=== PATIENT | male | born 1955 | race Caucasian/White ===

== ENCOUNTER → 2016-12-22 | Outpatient (CLI) | payer OTHER ==
[~2016-12-22] VITALS: Ht 177.8 cm; Wt 137.4 kg
[~2016-12-22] MED LIST: ADULT LOW DOSE81 MG PO; ALBUTEROL INHAL17 GM IH; ALEVE220 M1 PO; ALPRAZOLAM1 M1; ATIVAN0.5 MG PO; AVAPRO300 MG; AVAPRO75 MG PO; BUTRANS1 EAC1 TD; CVS FISH OIL 11 EAC3 PO; DOXYCYCLINE HY100 M4 PO; FLEXERIL PO; FOLIC ACID0.8 MG PO; GABAPENTIN800 M1 PO; HYDREA 500 MG500 M1 PO; HYDROCODON-ACE1 EAC5; HYDROCODON-ACE1 EAC5 PO; HYDROCODONE-AP1 EACH PO; KLOR-CON 1010 MEQ PO; LASIX 40 MG TAB40 MG; LASIX 80 MG TAB80 MG PO; LUNESTA2 MG PO; METFORMIN HCL500 MG PO; METHOCARBAMOL750 MG; NEURONTIN600 MG; NEURONTIN600 MG PO; NEURONTIN800 MG PO; NITROGLYCERIN0.4 MG; Neurontin PO; PERCOCET 5-3251 EACH PO; PREDNISONE50 MG PO; PROTONIX40 M2 PO; ROBAXIN 750 MG750 M1 PO; ROBAXIN 750 MG750 MG PO; ROBAXIN500 MG PO; SYMBICORT160 MCG/4.; TYLENOL PM EX-1 EACH PO; VENTOLIN17 GM; XANAX 0.5 MG0.5 MG PO
--- NOTE | ~2016-12-22 | HPC ---
[facility] [place] [address] PAIN MANAGEMENT CONSULTATION Name: RACHID DIAMOND Room #: REG SAJAN Torres.#: [id number] Admission: 12/22/16 Attend Phys: Navdeep Maguire MD Discharge: Date of : 59 Report #: [id number] THIS REPORT FOR: //name// CC: Renny Maguire DATE OF SERVICE: 12/22/2016 DATE OF SERVICE: 12/22/2016 Followup visit for chronic back. The patient is here today in the clinic and is quite dyspneic walking into the clinic. Nurse checked his room air oxygen saturation, which was in the mid 80s. Came up quickly with oxygen and rest. He says he frequently has shortness of breath. He has home O2 which he use, but has not been using it recently. He has COPD yet continues to smoke. We have talked him about this at length today and I have asked him to follow up soon with his primary care physician. He was given recommendations regarding smoking cessation and some strategies were discussed. Review of his medications today shows that he has been taking a nonsteroidal anti-inflammatory drug, despite our recommendations against this. He had Wilms' tumor as a child and has a solitary kidney left. There is certainly some risk with chronic daily use of nonsteroidal anti-inflammatory drugs and high dose of Lasix. Much rather ____ small doses of hydrocodone, then put his kidneys at risk. Again this is something that he should follow up with his primary care physician, Dr. Weston about. The patient also follows with Dr. Navdeep Velez for polycythemia vera. He has not seen Dr. Velez in some time and is looking for a new physician, as Dr. Velez has been reporting that he is retiring soon. MEDICATIONS: Aleve 1-2 tablets daily, Lasix 80 mg daily, Tylenol extra strength 1-4 tablets daily, hydrocodone 10/325 one tablet q. 8 hours p.r.n. severe pain, Neurontin ____ mg 4 times daily, Avapro, metformin, aspirin, Folic acid, albuterol, nitroglycerin, Hydrea. ALLERGIES: PENICILLIN, BENADRYL, METHOCARBAMOL. PHYSICAL EXAMINATION: GENERAL: Morbidly obese, short of breath, 61-year-old. VITAL SIGNS: His weight is 303 with a BMI of 43.5, blood pressure is 135/70, heart rate is 100, his room air oxygen saturation on admission was 84, rising to 91 on 2 L and short rest. CHEST: Reveals inspiratory [place] [address] PAIN MANAGEMENT CONSULTATION Name: DARAMELY JACINTOH Room #: REG [facility].#: [id number] Admission: 12/22/16 Attend Phys: Navdeep Maguire MD Discharge: Date of : 59 Report #: [id number] CARDIAC: Rhythm is regular, without audible murmur. ABDOMEN: Soft. BACK: Tender with pain across the lumbosacral segment, radiating into both legs. IMPRESSION: 1. Chronic intractable back pain related to previous back surgeries, lumbar spondylosis, curvature with scoliosis. 2. Chronic obstructive pulmonary disease with hypoxemia. 3. Polycythemia vera and myeloproliferative disorder. 4. Solitary kidney. Again counseled to avoid nonsteroidal anti-inflammatory drugs. History of Wilms' tumor. 5. Chronic opioid use under terms of an opioid agreement. We reviewed the details in the CDC guidelines with one prescribing physician, one pharmacy and opioid agreement has been signed importance of safeguarding all medications and management of high risk medication side effects. 6. Hypertension. PLAN: 1. Follow up with Dr. Weston regarding his other medical condition. 2. Stop smoking! counseled and provided strategies. 3. Avoid nonsteroidal anti-inflammatory drugs. 4. Hydrocodone as ordered. 5. Follow up in the pain clinic in 3 months. Medications were provided for him under terms of our opioid agreement. By: [id number] Navdeep Maguire MD /nt
[2016-12-22 10:04] VITALS: BP 135/70
== END | disposition home or self-care (01) ==
LOC: PAIN 07:03
DX: M47.816 Spondylosis without myelopathy or radiculopathy, lumbar region (principal); J44.9 Chronic obstructive pulmonary disease, unspecified; F17.200 Nicotine dependence, unspecified, uncomplicated; E66.01 Morbid (severe) obesity due to excess calories; Z68.41 Body mass index [BMI] 40.0-44.9, adult; D45 Polycythemia vera; C94.6 Myelodysplastic disease, not elsewhere classified; I10 Essential (primary) hypertension

== ENCOUNTER → 2017-03-16 | Outpatient (CLI) | payer OTHER ==
[~2017-03-16] VITALS: Ht 177.8 cm; Wt 131.5 kg
[~2017-03-16] MED LIST changes: +NICOTINE TRANSD21 M1
--- NOTE | ~2017-03-16 | HPC ---
[facility] [place] [address] PAIN MANAGEMENT CONSULTATION Name: RACHID DIAMOND Room #: REG SAJAN Torres.#: [id number] Admission: 03/16/17 Attend Phys: Navdeep Maguire MD Discharge: Date of : 59 Report #: [id number] THIS REPORT FOR: //name// CC: Renny Maguire DATE OF SERVICE: 03/16/2017 Followup visit for management of chronic medication for intractable pain. The patient returns to pain clinic today for renewal of pain medication. I provided him with 3 hydrocodone 10/325 tablets per day and gabapentin under the terms of an opioid agreement. We discussed the CDC guidelines. We discussed his dose which equates to 30 morphine milligram equivalence a day well under the dose that we are trying to keep patients established per the guidelines. Nonetheless, he still needs to be careful with his medications, safeguarding and taking as prescribed. He can only have one prescribers and one pharmacy. He lives in [place] and fills his prescriptions there. Using drug monitoring programs is impossible in the state of [place] despite recent efforts to bring [place] in line with the other 49 states in the [place]. I did not perform a K-TRACS today. He has reduced his tobacco use by 40%. He is down to 1-1/2 packs of cigarettes per day. He has been more active painting his house. Precautions were given regarding use of ladders at the age of 61 on medication and obesity. He reports that his pain is very well managed on his current regimen and tolerable. He has developed good regimen of work around the house that allows him to pace himself. Seems happier today. He has got a new dog, it is 8 weeks old. The companionship, I think, will do the patient a lot of good. PHYSICAL EXAMINATION: GENERAL: He is pleasant, alert, easy going. No signs of overmedication. MUSCULOSKELETAL: Examination of his back reveals localized tenderness. He has tenderness in his hips and knees, walks with an arthritic gait. IMPRESSION: 1. Chronic intractable low back pain and arthritis. 2. Solitary kidney, history of Wilms' tumor. 3. Obesity. 4. Chronic obstructive pulmonary disease. 5. Chronic high use tobacco with tapering with intent to quit. He was counseled. [address] [address] PAIN MANAGEMENT CONSULTATION Name: RACHID DIAMOND Room #: REG SAJAN Melissa.#: [id number] Admission: 03/16/17 Attend Phys: Navdeep Maguire MD Discharge: Date of : 59 Report #: [id number] 6. Management of high-risk medication. PLAN: I have renewed his medication under the terms of our agreement and scheduled a followup appointment in 3 months. Urine drug screen has been performed within the last 6 months. By: [id number] Navdeep Maguire MD /nt
[2017-03-16 08:19] VITALS: BP 117/63
== END ==
LOC: PAIN 06:49
DX: M54.5 Low back pain (principal); M19.90 Unspecified osteoarthritis, unspecified site; Q60.0 Renal agenesis, unilateral; C64.9 Malignant neoplasm of unspecified kidney, except renal pelvis; E66.9 Obesity, unspecified; J44.9 Chronic obstructive pulmonary disease, unspecified; F17.200 Nicotine dependence, unspecified, uncomplicated; I10 Essential (primary) hypertension

== ENCOUNTER → 2017-06-15 | Outpatient (CLI) | payer OTHER ==
[~2017-06-15] VITALS: Ht 177.8 cm; Wt 129.1 kg
--- NOTE | ~2017-06-15 | HPC ---
[facility] [address] [place] [address] PAIN MANAGEMENT CONSULTATION Name: RACHID DIAMODN Room #: REG SAJAN LalitTootie.#: [id number] Admission: 06/15/17 Attend Phys: Navdeep Maguire MD Discharge: Date of : 59 Report #: [id number] THIS REPORT FOR: //name// CC: Renny Maguire DATE OF SERVICE: 06/15/2017 Followup visit for management of chronic low back pain and osteoarthritis. The patient was in the pain clinic today and I spent 25 minutes in counseling today regarding his chronic pain and general health. Much of that time was spent discussing his desire to quit smoking. He has reduced his tobacco down to 1-1/2 packs per day, but he understands that his tobacco use is important not only for his pain, but for his general health. He is now becoming more oxygen dependent based upon his pulmonary condition. Several strategies were provided for him to quit smoking. The patient has smoked since he was a child. He has many habitual cigarettes. He has failed attempts to quit smoking on several occasions. His pain today is mostly in his low back with chronic deep aching, worse with walking and standing. His pain is 6-7/10. With shortness of breath, he is becoming less active. This seems to also worsen his back pain as he becomes more debilitated. MEDICATIONS: Hydrocodone 10/325 mg 4 times daily, gabapentin 800 mg t.i.d., Lasix 80 mg every other day, lorazepam 0.5 mg b.i.d., nitroglycerine, hydroxyurea, albuterol, folic acid, aspirin, metformin, irbesartan. PHYSICAL EXAMINATION: Morbidly obese, pleasant, alert, oriented. No signs of depression, anxiety, or overmedication. Slightly dyspneic at rest. His oxygen saturation is 92%. His blood pressure is 120/82, heart rate 90. His BMI is 40.8. Able to move from sitting to standing position, ambulates with antalgic features. He has pain across his low back, pain into his hips with straight leg raising. Pain with internal and external rotation of each hip and tenderness in the knees. IMPRESSION: 1. Chronic low back pain with spondylosis and osteoarthritis. 2. Morbid obesity. 3. Chronic obstructive pulmonary disease. 4. Chronic use of tobacco. 5. Solitaire kidney with history of Wilms tumor. PLAN: [place] [address] PAIN MANAGEMENT CONSULTATION Name: RACHID DIAMOND Room #: REG SAJAN TorresMary#: [id number] Admission: 06/15/17 Attend Phys: Navdeep Maguire MD Discharge: Date of : 59 Report #: [id number] 1. Continue supportive efforts to quit smoking. 2. Renewal of pain medication under terms of written opioid agreement, 10 mg of hydrocodone 3 times daily and gabapentin 800 mg t.i.d. Medications were written for 4 months. 3. Review of the CDC guidelines, review of opioid agreement, and issues related to using opioids for chronic intractable pain. He will continue to safeguard his medications carefully. By: [id number] Navdeep Maguire MD /nt
[2017-06-15 09:25] VITALS: BP 120/82
== END | disposition home or self-care (01) ==
LOC: PAIN 07:08
DX: M47.819 Spondylosis without myelopathy or radiculopathy, site unspecified (principal); E66.01 Morbid (severe) obesity due to excess calories; J44.9 Chronic obstructive pulmonary disease, unspecified; Q60.0 Renal agenesis, unilateral; Z79.899 Other long term (current) drug therapy; Z68.41 Body mass index [BMI] 40.0-44.9, adult; F17.200 Nicotine dependence, unspecified, uncomplicated

== ENCOUNTER → 2017-09-11 | Outpatient (CLI) | payer OTHER ==
[~2017-09-11] VITALS: Ht 177.8 cm; Wt 129.4 kg
--- NOTE | ~2017-09-11 | HPC ---
[facility] [place] [address] PAIN MANAGEMENT CONSULTATION Name: RACHID DIAMOND Room #: REG SAJAN TorresMary#: [id number] Admission: 09/11/17 Attend Phys: Yariel Miranda MD Discharge: Date of : 59 Report #: [id number] THIS REPORT FOR: //name// CC: Renny Miranda DATE OF SERVICE: 09/11/2017 FOLLOWUP COMPLAINT: Here for medication refill. FOLLOWUP HISTORY: The patient is a 62-year-old gentleman who has been followed in the pain clinic by Dr. Navdeep Maguire. Suffers from chronic low back pain and osteoarthritis. He continues to smoke. States that he is decreasing his smoking level. He is at about 1-1/2 packs per day, may be a little more. He is wearing an [id number] nicotine patch. States that his pain continues to be problematic in his low back and feels that his medications are still necessary to help maintain his level of activity. He denies getting medication from any other source. States that he is aware that opioid medications can be addictive and tolerance may develop. States that he continues to try to decrease the amount of cigarettes that he is taking. Notes the pain continues to be problematic in his back with walking and standing. Does have some shortness of breath with activity. PHYSICAL EXAMINATION: Blood pressure 139/71, pulse 86, respiratory rate 22. Room air saturation 93%. Height 5 feet 10 inches, weight 285 pounds, BMI is 40. CURRENT MEDICATIONS: Hydrocodone 10/325 four tablets daily, gabapentin 800 mg t.i.d., Lasix 80 mg every other day, lorazepam 0.5 mg b.i.d., nitroglycerin p.r.n., hydroxyurea, albuterol, folic acid, aspirin, metformin, irbesartan. IMPRESSION: 1. Chronic low back pain with spondylosis and osteoarthritis. 2. Morbid obesity. 3. Chronic obstructive pulmonary disease. 4. Chronic use of tobacco. 5. Solitary kidney with history of Wilms tumor. RECOMMENDATIONS: We encourage the patient to continue to decrease use of tobacco. We also explained to the patient that use of a nicotine patch is not a good idea given that he continues to smoke. We would like to thank you for letting us participate in his care. We hope he continues to improve. <ELECTRONICALLY SIGNED> By: Yariel Miranda MD 09/17/17 [id number] [id number] Yariel Miranda MD /[facility]
[2017-09-11 08:05] VITALS: BP 139/71
== END ==
LOC: PAIN 06:55
DX: M54.16 Radiculopathy, lumbar region (principal); M19.91 Primary osteoarthritis, unspecified site; J44.9 Chronic obstructive pulmonary disease, unspecified; E66.01 Morbid (severe) obesity due to excess calories; F17.200 Nicotine dependence, unspecified, uncomplicated

== ENCOUNTER → 2017-12-10 | Outpatient (CLI) | payer OTHER ==
[~2017-12-10] VITALS: Ht 180.3 cm; Wt 130.2 kg
[~2017-12-10] MED LIST changes: +VENTOLIN HFA 1818 GM INH; -VENTOLIN17 GM
--- NOTE | ~2017-12-10 | HPC ---
[facility] [address] [place] [address] PAIN MANAGEMENT CONSULTATION Name: RACHID DIAMOND Room #: REG SAJAN Torres.#: [id number] Admission: 12/10/17 Attend Phys: Navdeep Maguire MD Discharge: Date of : 59 Report #: [id number] THIS REPORT FOR: //name// CC: Renny Maguire DATE OF SERVICE: 12/10/2017 Followup visit for chronic low back pain with spondylosis and osteoarthritis. The patient returns to Pain Clinic today in followup for medication management of chronic back pain. He has been in our practice now for over 6 years. He has managed his medications carefully and we have kept at a very low dose. He has been using hydrocodone 3 tablets per day under terms of our written agreement. With this, he is able to function at a high level. He is able to take care of all of his activities of daily living. He is able to do some chores around the house. He has noted no cognitive side effects and constipation has been well managed. He does not take very good care of himself and we discussed that today. He continues to smoke and he is morbidly obese. Although, he remains active, he does not regularly exercise. I talked about the importance of staying active. Dr. Weston follows him for COPD. He also manages all other medications, which were reviewed and reconciled from the electronic medical record. It should be noted that he is not a fall risk and has not fallen in the last several months. His hypertension has been controlled with medication. His blood pressure 138/80, heart rate 97, respirations 18. His O2 sat, however, is 91 on room air. He is short of breath with dyspnea with exertion. He has some expiratory wheezing. He is on an opioid agreement, which was signed initially several years ago and renewed that contract and had him resign it today just to reinforce the issues of safeguarding medication. He is on 30 morphine milligram equivalents per day, using 3 hydrocodone relatively on schedule. These are 10 mg tablets and they provide good relief for a good duration of response. His opioid risk tool is 13. He has high risk and we will monitor him carefully at 3-month intervals. Functional assessment tool shows 47/70 as his score today. His initial score when he came to our practice in 2010 with 70/70. So, he is doing better. IMPRESSION: 1. Chronic low back pain with spondylosis and osteoarthritis of the left hip. 2. Morbid obesity. [facility] [address] [place] [address] PAIN MANAGEMENT CONSULTATION Name: RACHID DIAMOND Room #: REG [facility]#: [id number] Admission: 12/10/17 Attend Phys: aNvdeep Maguire MD Discharge: Date of : 59 Report #: [id number] 3. Chronic obstructive pulmonary disease. 4. Tobacco abuse. 5. Solitary kidney with Wilms tumor. 6. Polycythemia vera. PLAN: 1. He was again counseled on smoking today. 2. I have renewed his medications under terms of our written agreement and discussed the CDC guidelines with him again. His dose is 30 morphine milligram equivalents a day, taking hydrocodone 10/325 three times a day on schedule. 3. He was counseled about the use of marijuana for the treatment of pain or for recreation in the State [place], [place]. These are considered drugs of abuse. He has used these in the past. 4. Follow up with Oncology for his condition of polycythemia vera. 5. Follow up in 3 months. <ELECTRONICALLY SIGNED> By: Navdeep Maguire MD 01/04/18 1408 1035 1202 Navdeep Maguire MD /nt
[2017-12-10 10:06] VITALS: BP 138/80
== END ==
LOC: PAIN 06:58
DX: M47.896 Other spondylosis, lumbar region (principal); M16.12 Unilateral primary osteoarthritis, left hip; E66.01 Morbid (severe) obesity due to excess calories; J44.9 Chronic obstructive pulmonary disease, unspecified; F17.200 Nicotine dependence, unspecified, uncomplicated; D45 Polycythemia vera; C64.9 Malignant neoplasm of unspecified kidney, except renal pelvis; Z68.41 Body mass index [BMI] 40.0-44.9, adult

== ENCOUNTER → 2018-03-11 | Outpatient (CLI) | payer OTHER ==
[~2018-03-11] VITALS: Ht 180.3 cm; Wt 133.3 kg
--- NOTE | ~2018-03-11 | HPC ---
[facility] [place] [address] PAIN MANAGEMENT CONSULTATION Name: RACHID DIAMOND Room #: REG SAJAN Melissa.#: [id number] Admission: 03/11/18 Attend Phys: Navdeep Maguire MD Discharge: Date of : 59 Report #: [id number] THIS REPORT FOR: //name// CC: [facility] Renny Maguire DATE OF SERVICE: 03/11/2018 Followup visit for chronic low back pain related to spondylosis and also history of osteoarthritis of the left hip. The patient returns to pain clinic today for followup. I see him at 3-month intervals. He established treatment in our clinic in 2010. He has chronic back pain related to degenerative spondylosis and complains of pain in his large joints, particularly his left hip, which is osteoarthritic. He has been treated with medications with substantial improvement. He reports subjective reductions in pain as well as improvement in his activities of daily living. He denies any significant side effects other than mild constipation, which is often counter acted by the other medications that he takes. He has polycythemia vera and is on hydroxyurea, which can loosen his stools. In the interval since his last visit, there have been no significant changes other than some concern about the interval between his phlebotomies. His hematocrit on one occasion ailyn to above 49 and he becomes symptomatic when this occurs with fatigue. All medications are reviewed and reconciled. He receives from our clinic hydrocodone 10/325 three tablets daily and gabapentin 800 mg t.i.d. He requested an increase in his gabapentin and I agreed to take him to 3200 mg per day. PQRS assessment shows history of osteoarthritis involving multiple joints, left and right upper and lower extremity, shoulders, hips and knees. He is obese with a BMI of 41. He has a history of hypertension, under treatment by primary physicians. He is not a fall risk and has not fallen in the last 3 months. He is receiving opioid medications and has an opioid agreement signed in the chart 12/10/2017. He has completed a functional assessment tool and is considered a high risk. We will monitor him carefully. His number was 13. He has shown no red flag behaviors. His functional assessment tool score is 47/70. SOCIAL HISTORY: He continues to smoke cigarettes, 1 to 1-1/2 packs per day and has done so for 40 years. He was counseled. PHYSICAL EXAMINATION: [address] [address] PAIN MANAGEMENT CONSULTATION Name: RACHID DIAMOND [id number] Admission: 03/11/18 Attend Phys: Navdeep Maguire MD Discharge: Date of : 59 Report #: [id number] GENERAL: He is a pleasant, outgoing gentleman. VITAL SIGNS: Blood pressure 131/71, heart rate is 91. His BMI is 41.0. CARDIAC: Rhythm is regular. CHEST: Reveals inspiratory and expiratory wheezing. He has pain across his low back with flexion and extension, both exacerbating pain. Straight leg raising is negative for radicular symptoms. He has bilateral pain in the hips with internal and external rotation and tenderness in the shoulders and knees consistent with osteoarthritis. IMPRESSION: 1. Chronic intractable back pain related to multiple pain generators including spondylosis of the lumbar spine and osteoarthritis involving multiple joints. 2. Morbid obesity. 3. Chronic obstructive pulmonary disease. 4. Tobacco abuse. 5. Polycythemia vera. 6. Solitary kidney with history of resection for Wilms tumor. 7. Management of high risk medications under terms of an opioid agreement. I have renewed his hydrocodone at 30 MME per day, three 10/325 tablets taken on a schedule and I have increased his gabapentin 800 mg 4 times daily. He should follow up with his primary care physician. I would prefer that he obtain electrolytes sometime within the next 2 months on the higher dose of gabapentin to monitor for hyponatremia or other electrolyte changes. By: [id number] Navdeep Maguire MD /nt
[2018-03-11 09:41] VITALS: BP 131/71
== END ==
LOC: PAIN 06:46
DX: M54.16 Radiculopathy, lumbar region (principal); J44.9 Chronic obstructive pulmonary disease, unspecified; G89.4 Chronic pain syndrome; M19.90 Unspecified osteoarthritis, unspecified site; M54.5 Low back pain; D45 Polycythemia vera; E66.01 Morbid (severe) obesity due to excess calories; F17.200 Nicotine dependence, unspecified, uncomplicated; Z79.899 Other long term (current) drug therapy

== ENCOUNTER → 2018-09-09 | Outpatient (CLI) | payer OTHER ==
[~2018-09-09] VITALS: Ht 182.9 cm; Wt 131.1 kg
--- NOTE | ~2018-09-09 | HPC ---
[facility] [address] [place] [address] PAIN MANAGEMENT CONSULTATION Name: RACHID DIAMOND Room #: REG Rajat Bowen#: [id number] Admission: 09/09/18 Attend Phys: Jael Gutierrez Discharge: Date of : 59 Report #: [id number] THIS REPORT FOR: //name// CC: Jael Weston DATE OF SERVICE: 09/09/2018 This is a followup visit for his osteoarthritis, lumbar spondylosis and chronic pain. HISTORY OF PRESENT ILLNESS: The patient returns today for a refill of his pain medication, which we provide for him under his written opioid agreement to help him manage his chronic pain and osteoarthritis. He tells me that his pain level today is 7/10. This is an average pain score for him, but it allows him to function and do his normal activities of daily living. He tells me that he is trying to stop smoking. He is down to 2 packs a day, which he was smoking 3-1/2 packs a day. He is slowly making progress. We also discussed that his primary care doctor has been decreasing his Ativan. The patient tells me he wants to get off all of his opioid and Ativan medications. The patient tells me that he has most of his pain when he is walking and standing, but better when he is sitting and lying down. He tells me that he does not have any constipation or daytime sleepiness. He does take a scheduled nap every afternoon. The patient also tells me he is interested in the medical marijuana when that becomes available in [place] and he understands that he will not be on any narcotics if he gets a medical marijuana card. The patient today would like a refill of his hydrocodone and his gabapentin. CURRENT ALLERGIES: BENADRYL, PENICILLIN AND METHOCARBAMOL. CURRENT LIST OF MEDICATIONS: Hydrocodone 10/325 up to 3 times a day, gabapentin 800 mg 4 times a day, Lasix 80 mg daily, lorazepam 0.5 mg daily, Avapro 75 mg daily, metformin 500 mg daily, aspirin daily, folic acid daily, Ventolin inhaler as needed and Hydrea 500 mg capsules. PQRS: 1. The patient has a history of osteoarthritis and history of rheumatoid arthritis in his upper and lower extremities. 2. Height is 6 feet 0, weight is 289. 3. BMI is 39.2. 4. Vital signs: Blood pressure 142/75, pulse is 95, respirations 22, and oxygen sat is 90% after sitting for a prolonged period of time. 5. Pain score is 7/10. 6. Fall risk. He denies dizziness. Does not need help walking or standing and has not fallen in the last 3 months. 7. The patient is not on a blood thinner and [place] [address] PAIN MANAGEMENT CONSULTATION Name: DARARACHID LEE Room #: REG CLRajat Wiseman#: [id number] Admission: 09/09/18 Attend Phys: Jael Gutierrez Discharge: Date of : 59 Report #: [id number] medications. 8. Opioid therapy is greater than 6 weeks, therefore, an opioid signed contract is on the chart. 9. Risk assessment tool is high and his functional assessment is 47/70. 10. Recreational drug use. He has used in the past greater than 3 months ago for marijuana. He is a current everyday smoker at 2 packs a day, which is a decrease. The patient is slowly trying to stop smoking, has decreased from 3-1/2 packs a day and he does not drink alcohol. We did check the [place] prescription monitoring system. The patient is filling appropriately with his pain medicines at one pharmacy. There is a drug screen on the chart. We will recheck that at his next visit since it will be time to do that again. PHYSICAL EXAMINATION: GENERAL: This is a pleasant, alert, well-nourished gentleman that appears his stated age. He does not show any signs of depression, anxiety or overmedication. HEENT: Normocephalic, atraumatic. Extraocular eye muscles are intact. Mucous membranes are moist. Hearing is adequate. NECK: No JVD or adenopathy. Range of motion is adequate. MUSCULOSKELETAL: The patient moves from sitting to standing position slowly, walks with a waddling gait. Some tenderness over his lower back and his joints bilaterally on his legs and some tenderness in his shoulders. IMPRESSION: 1. Chronic intractable back pain with multiple pain generators including spondylosis and degenerative disk disease. 2. Osteoarthritis, multiple joints. 3. Morbid obesity. 4. Chronic obstructive pulmonary disease. 5. Polycythemia vera. 6. The patient has one kidney due to resection of Wilms tumor. 7. Management of high risk medication under terms of written opioid agreement. We reviewed the fact that opiate medications are being used to provide analgesia adequate to support activities of daily living, not attempting to achieve a specific pain score on the 0-10 Visual Analog Scale. The current opiate medications are providing sufficient analgesia to allow the patient to participate in activities of daily living. The patient is not exhibiting any aberrant behavior suggestive of drug diversion. The patient is not having any adverse reactions to medications. The patient is not suffering from daytime somnolence or mental acuity changes. The patient is managing opiate-induced constipation with appropriate putj-zjs-smfwnzi agents and dietary considerations. The patient was counseled on concern for caution with operating a motor vehicle while using opiate medications. A physical exam was performed and the patient's functional status was evaluated. [facility] [address] [place] [address] PAIN MANAGEMENT CONSULTATION Name: RACHID DIAMOND Room #: REG [facility].#: [id number] Admission: 09/09/18 Attend Phys: Jael Gutierrez Discharge: Date of : 59 Report #: [id number] All patients with back pain were advised against the bed rest greater than 4 days and were advised to return to normal activities. Pain score assessment was noted and the treatment plan was reviewed with the patient. All current medications, both prescribed and OTC were reviewed and reconciled on the electronic medical record. Tobacco screening was accomplished and smoking cessation was advised when indicated. BMI was noted and diet/exercise modification was recommended for all patients following outside normal parameters. I reviewed with the patient today their responsibilities to safeguard prescription medications, reviewed their responsibility to utilize medications only as prescribed by the physician. They are to seek and receive pain medications only from 1 physician group ( [facility]). They are to use 1 pharmacy and keep the clinic informed if they change pharmacies. Their responsibilities include making followup visits in a timely fashion and to avoid abrupt discontinuation of medication usage. Their responsibilities further include bringing their medications (bottles from the pharmacy with residual pills) to the visit for possible confirmation of pill counts and the patient understands it is their responsibility to submit to random drug screens to ensure both that the medications prescribed are present, and that no other controlled substances are present. All prescriptions provided today were generated electronically. PLAN: 1. We discussed treatment options today with the patient. He tells me that he is able to function with his current medication and would like a refill. Script today given for hydrocodone 10/325, #90 for today release, 4-week and 8-week release. Second medication is Neurontin 800 mg q.i.d., #120 with refills given for that. 2. The patient discussed with me for quite a while smoking cessation and ways to decrease his smoking. The patient has slowly decreased from 3-1/2 packs a day to 2 packs a day. We did discuss medication options such as Chantix. The patient has tried that in the past and was not very successful. We also talked about if the patient saves his money from that he used to use for buying cigarettes, that he would be able to go on a trip and the patient thought that was a good idea, he would love to go to the [facility] he tells me. 3. The patient also said that his primary care doctor is decreasing his Ativan. I explained to the patient that it hard to wean off benzodiazepine, told him to go at this slowly and not stop that abruptly. It could be actually harder to wean off benzodiazepines than his opioid. The patient tells me he is down to 1 a day, seeing his primary doctor in September and hopeful to decrease in half his medication again and be off it within 3-4 months, sounds like a plan that he has in place. 4. The patient questioned about medical marijuana card since it will be legal next year in the state of [place]. I am unsure if any of our doctors will be doing that since they provide opioids to patients. The patient tells me that he [facility] [address] [place] [address] PAIN MANAGEMENT CONSULTATION Name: RACHID DIAMOND Room #: LEONARDO Wiseman#: [id number] Admission: 09/09/18 Attend Phys: Jael Gutierrez Discharge: Date of : 59 Report #: [id number] would like to be off his opioids if he was able to have a medical marijuana card. I told him we will discuss that in the future as it gets closer to be available in the [facility]. 5. The patient will be seen in 3-month followup and care given today in collaboration with Dr. Navdeep Maguire. <ELECTRONICALLY SIGNED> By: Jael Gutierrez 09/09/18 1346 [id number] Jael Gutierrez /tisha
[2018-09-09 10:08] VITALS: BP 142/75
== END ==
LOC: PAIN 09:08
DX: M51.36 Other intervertebral disc degeneration, lumbar region (principal); M47.896 Other spondylosis, lumbar region; J44.9 Chronic obstructive pulmonary disease, unspecified; D45 Polycythemia vera; E66.8 Other obesity; F17.200 Nicotine dependence, unspecified, uncomplicated; Z79.899 Other long term (current) drug therapy; Z88.0 Allergy status to penicillin; Z88.8 Allergy status to other drugs, medicaments and biological substances

== ENCOUNTER → 2018-12-09 | Outpatient (CLI) | payer OTHER ==
[~2018-12-09] VITALS: Ht 177.8 cm; Wt 128.8 kg
[2018-12-09 08:40] VITALS: BP 139/85
--- NOTE | 2018-12-09 08:47 | NUR ---
Pain Clinic Assessment: 1. History of Osteoarthritis: Not Applicable History of Rheumatoid Arthritis: Left Lower Extremity Left Upper Extremity Right Lower Extremity Right Upper Extremity 2. Height: 5 ft. 10 in. 177.8 cm. Weight: 284.0 lb. oz. 128.822 kg. Patient's BMI: 40.7 3. Vital Signs: BP: 139/85 Pulse: 91 Resp: 20 Temp: 02 Sat: 92 ECG Mon: 4. Pain Intensity: 5 5. Fall Risk: Dizziness: N Needs help standing or walking: N Fallen in the last 3 months: N Fall risk comments: 6. Patient on Blood Thinner: None 7. History of Hypertension: Y 8. Opioid Therapy greater than 6 weeks: Y Opiate Contract Signed: 12/10/17 9. Risk Assessment Tool Provided: HIGH RISK-13 10. Functional Assessment Tool: / 11. Recreational Drug Use: Past greater than 3 mos Drug Type: Tobacco Use: Current Every Day Smoker Tobacco Type: Cigarettes Amount or Packs/day: 2 PACKS How Many Years: 45 Alcohol Use: No Frequency: Quant:
--- NOTE | 2018-12-10 07:33 | HPC ---
[facility] [address] [place] [address] PAIN MANAGEMENT CONSULTATION Name: RACHID DIAMOND Room #: REG Rajat Bowen#: [id number] Admission: 12/09/18 ������������������ Attend Phys: Jael Gutierrez Discharge: ������������������ Date of : 59 Report #: [id number] THIS REPORT FOR: //name// CC: Jael Weston DATE OF SERVICE: 12/09/2018 CHIEF COMPLAINT: Osteoarthritis, lumbar spondylosis and chronic back pain. HISTORY OF PRESENT ILLNESS: This patient returns to the pain clinic today for refill of his medications. He tells me that his hydrocodone is very helpful in controlling his low back pain and his bilateral feet pain. He rates his pain score 5/10 today, which he tells me is fairly average pain score. The gabapentin and hydrocodone that he takes does help with his pain control, he tells me as well as sitting and lying down. When he is walking and standing, his pain is worse. He tells me that he does not have any problems with constipation and occasionally takes daytime naps, but is not feeling overmedicated causing him to be sleepy. The patient tells me that he has been weaning off his lorazepam from his primary care doctor and has not had that for several weeks now and has not noticed a change. ALLERGIES: BENADRYL, PENICILLIN, METHOCARBAMOL. CURRENT LIST OF MEDICATIONS: Hydrocodone 10/325 three times a day, gabapentin 800 mg 4 times a day, Avapro 75 mg daily, metformin 500 mg daily, aspirin 81 mg daily, folic acid daily, albuterol inhaler as needed, Hydrea 1000 mg daily. PQRS: 1. He has a history of osteoarthritis and history of rheumatoid arthritis in his upper and lower extremities. 2. Height is 5 feet 10 inches, weight is 284, BMI is 40. 3. Vital signs: Blood pressure 139/85, pulse is 91, respirations 20, oxygen sat is 92. 4. Pain score is 5/10. 5. The patient denies dizziness, does not need help walking or standing, has not fallen in the last 3 months. 6. The patient is not on any blood thinners, but does take medicine for hypertension. 7. Opioid therapy is greater than 6 weeks. Therefore, an opioid signed contract is on the chart. 8. Risk assessment tool is high. His functional assessment is 47/70. 9. Recreational drug use within the past 3 months. He is a current smoker about 2-1/2 packs a day and alcohol use he denies. We checked the prescription monitoring system[place] [address] PAIN MANAGEMENT CONSULTATION Name: RACHID DIAMOND CITLALI Room #: REG Rajat Wiseman#: [id number] Admission: 12/09/18 ������������������ Attend Phys: Jael Gutierrez Discharge: ������������������ Date of : 59 Report #: [id number] appropriately from his medications. He does have a recent script for his lorazepam, but he tells me that he is decreasing and weaning off of this medicine, has not had it for a week. There is a drug screen that will be checked at next appointment. PHYSICAL EXAMINATION GENERAL: This is a pleasant, alert 63-year-old gentleman who appears his stated age. He does not show any signs of depression, anxiety or overmedication. HEENT: Normocephalic, atraumatic. Pupils equal, round and reactive to light. Mucous membranes are moist. Hearing is adequate. MUSCULOSKELETAL: The patient moves from sitting to standing slowly. He does walk with an antalgic gait. Complains of lower back pain and tenderness as well as bilateral feet pain. Lower extremity strength is judged to be 5/5 in all major muscle groups. IMPRESSION: 1. Chronic intractable pain with multiple pain generators including spondylosis and degenerative disk disease. 2. Osteoarthritis of multiple joints. 3. Morbid obesity. 4. Chronic obstructive pulmonary disease. 5. Polycythemia vera. 6. The patient has one kidney due to resection of a Wilms tumor. 7. Management of high risk medications under terms of written opioid agreement. We reviewed the fact that opiate medications are being used to provide analgesia adequate to support activities of daily living, not attempting to achieve a specific pain score on the 0-10 Visual Analog Scale. The current opiate medications are providing sufficient analgesia to allow the patient to participate in activities of daily living. The patient is not exhibiting any aberrant behavior suggestive of drug diversion. The patient is not having any adverse reactions to medications. The patient is not suffering from daytime somnolence or mental acuity changes. The patient is managing opiate-induced constipation with appropriate mxgw-bob-igvfsud agents and dietary considerations. The patient was counseled on concern for caution with operating a motor vehicle while using opiate medications. A physical exam was performed and the patient's functional status was evaluated. All patients with back pain were advised against the bed rest greater than 4 days and were advised to return to normal activities. Pain score assessment was noted and the treatment plan was reviewed with the patient. All current medications, both prescribed and OTC were reviewed and reconciled on the electronic medical record. Tobacco screening was accomplished and smoking cessation was advised when indicated. BMI was noted and diet/exercise modification was recommended for all patients following outside normal parameters. [address] [address] PAIN MANAGEMENT CONSULTATION Name: RACHID DIAMOND Room #: REG [facility]#: [id number] Admission: 12/09/18 ������������������ Attend Phys: Jael Gutierrez Discharge: ������������������ Date of : 59 Report #: [id number] I reviewed with the patient today their responsibilities to safeguard prescription medications, reviewed their responsibility to utilize medications only as prescribed by the physician. They are to seek and receive pain medications only from 1 physician group ( [facility]). They are to use 1 pharmacy and keep the clinic informed if they change pharmacies. Their responsibilities include making followup visits in a timely fashion and to avoid abrupt discontinuation of medication usage. Their responsibilities further include bringing their medications (bottles from the pharmacy with residual pills) to the visit for possible confirmation of pill counts and the patient understands it is their responsibility to submit to random drug screens to ensure both that the medications prescribed are present, and that no other controlled substances are present. All prescriptions provided today were generated electronically. PLAN: 1. We discussed treatment options with the patient today. The patient tells me that he is doing well on his current medication regime. Scripts given today for hydrocodone 10/325, #90. His current MME is 30 MME per day while under the CDC guidelines; therefore, we have given him a script for today, 4-week and 8-week release. Second medication is gabapentin 800 mg q.i.d., #120 with 2 additional refills. 2. We did talk for a significant amount of time about decreasing smoking. The patient smokes about 2-1/2 packs a day. We talked about various ways to decrease his smoking. The patient is worried that he will gain weight if he quit smoking and we did address these to finding ways to occupy his mouth with gum or throat lozenges or things other than food. Grandson is here present today and is willing to try and help the patient decrease his smoking as well. 3. We also talked about medical marijuana. I reminded the patient that marijuana is not legal here in the State [place], yet it will be sometime next year and the patient wishes to get a medical marijuana card at that time and we reminded him that at that time, we will no longer prescribe opioids for him and he is in agreement with that when the time comes. Currently, we will remain on his current doses of medications. 4. The patient did see Dr. Maguire briefly today who collaborated the care also. We will also check a random drug screen next visit. ��������������������������������������������� <ELECTRONICALLY SIGNED> ���������������������������������������� By: Jael Gutierrez ��������������������������������������������� 12/10/18 0733 [id number] Jael Gutierrez /tisha
== END ==
LOC: PAIN 06:52
DX: M47.816 Spondylosis without myelopathy or radiculopathy, lumbar region (principal); M51.36 Other intervertebral disc degeneration, lumbar region; G89.4 Chronic pain syndrome; M19.90 Unspecified osteoarthritis, unspecified site; E66.01 Morbid (severe) obesity due to excess calories; J44.9 Chronic obstructive pulmonary disease, unspecified; D45 Polycythemia vera; Z79.891 Long term (current) use of opiate analgesic; Z79.899 Other long term (current) drug therapy; Z68.41 Body mass index [BMI] 40.0-44.9, adult; Z85.528 Personal history of other malignant neoplasm of kidney

== ENCOUNTER 2019-03-02 20:09 | Inpatient (IN) | payer OTHER ==
[~2019-03-02] VITALS: Ht 177.8 cm; Wt 124.3 kg
--- NOTE | 2019-03-02 20:11 | NUR ---
RESPIRATORY NOTIFIED OF NEED FOR BIPAP PER PHYSICIAN REQUEST
[2019-03-02 20:31] LABS: HEMATOCRIT 43.4 % (42.0-52.0); HEMOGLOBIN 14.2 gm/dL (14.0-18.0); MCH 39.1 pg (26.0-34.0); MCHC 32.7 g/dL (28.0-37.0); MCV 119.8 fL (80.0-100.0); PLATELET COUNT 245 thou/uL (150-400); RBC 3.62 mil/uL (4.50-6.00); RDW 17.5 % (10.5-14.5); WBC 9.5 thou/uL (4.0-11.0)
[2019-03-02 20:41] LABS: ANION GAP 6 mmol/L (7-16); BUN 25 mg/dL (7-18); CALCIUM 9.2 mg/dL (8.5-10.1); CHLORIDE 102 mmol/L (98-107); CO2 29 mmol/L (21-32); CREATININE 1.1 mg/dL (0.7-1.3); GLUCOSE 155 mg/dL (74-106); POTASSIUM 4.7 mmol/L (3.5-5.1); SODIUM 137 mmol/L (136-145)
[2019-03-02 20:52] LABS: ALBUMIN 3.3 g/dL (3.4-5.0); SGOT 13 U/L (15-37); SGPT 14 U/L (30-65); TOTAL BILIRUBIN 0.8 mg/dL (<0.1-1.0); TOTAL PROTEIN 7.3 g/dL (6.4-8.2); TROPONIN-I <0.06 ng/mL (<0.06)
[2019-03-02 20:56] LABS: ABSOLUTE NEUTROPHILS 7.7 thou/uL (1.4-8.2); ANISOCYTOSIS 2+; MACROCYTES 2+; POLYCHROMASIA OCCASIONAL
[2019-03-02 21:20] LABS: BE(vivo) -3.1 mmol/L (-2 to +3); HCO3 25.4 mmol/L (22.0-26.0); PCO2 61.3 mmHg (35.0-45.0); PO2 100.5 mmHg (80.0-100.0); pH 7.236 (7.360-7.450); sO2 96.4 % (92.0-98.0)
[2019-03-02 22:05] VITALS: BP 115/61
[2019-03-02 22:27] VITALS: BP 121/61
[2019-03-02 22:34] VITALS: BP 121/61
[2019-03-02 23:21] LABS: CHOLESTEROL 107 mg/dL (<200); HDL CHOLESTEROL 18 mg/dL (>40); LDL CHOLESTEROL 62 mg/dL (<100); TC:HDL 5.9 Ratio (Not establshd); TRIGLYCERIDE 138 mg/dL (<150); VLDL 28 mg/dL (<40)
[2019-03-02 23:23] LABS: SERUM ASSESSMENT Clear
[2019-03-03] VITALS (7 sets, daily range): BP systolic 116–1116; BP diastolic 49–82
--- NOTE | 2019-03-03 02:42 | NUR ---
PT ARRIVED UNIT AT ABOUT 2230. PT A/OX4, VITAL SIGNS STABLE, ASSESSMENT CHARTED. PT ON 6L O2 AND DID NOT WANT TO USE THE BIPAP. EXTREME SOB, DIAPHORETIC. EDUCATION PROVIDED REGARDING IMPROVING RESPITORY STATUS. PT FINALLY ACCEPTED TO USE BIPAP. PT SEEMED TO BREATHE BETTER AFTER BIPAP. PT NSR ON THE MONITOR. CARDIZEM DRIP GOING AT 10ML/HR. AT ABOUT 0015, CARDIZEM WAS TITRATED DOWN TO 5MG/HR. HR MAINTAINED IN THE 70'S. PT CONVERTED FROM AFIB AT ABOUT 2240. HR WITHIN NORMAL LIMITS. PT COMPLAINED OF SEVERE BACK PAIN, PAIN MANAGED ADEQAUTELY WITH PAIN MEDICATION. PT RESTING CONFORTABLY. FREQENT CHECKS. FAMILY AT BEDSIDE. VITAL SIGNS REMAIN STABLE AT THIS TIME. WILL CONTINUE TO CLOSELY MONITOR.
[2019-03-03 04:11] LABS: HCO3 25.6 mmol/L (22.0-26.0); PCO2 61.9 mmHg (35.0-45.0); PO2 91.1 mmHg (80.0-100.0); sO2 95.3 % (92.0-98.0)
[2019-03-03 04:14] LABS: pH 7.235 (7.360-7.450)
[2019-03-03 04:28] LABS: HEMOGLOBIN 12.8 gm/dL (14.0-18.0); MCH 38.9 pg (26.0-34.0); MCV 121.5 fL (80.0-100.0); RBC 3.3 mil/uL (4.50-6.00); RDW 17.3 % (10.5-14.5); WBC 7.8 thou/uL (4.0-11.0)
[2019-03-03 04:43] LABS: CALCIUM 8.7 mg/dL (8.5-10.1)
[2019-03-03 04:46] LABS: POTASSIUM 5.7 mmol/L (3.5-5.1)
--- NOTE | 2019-03-03 05:47 | NUR ---
AT ABOUT 0445, PT WOKE UP FROM SLEEP AND DECIDED THAT HE WANTED TO GO HOME. HE STATED THAT HIS NICOTINE PATCH THAT HE REQUESTED WAS DELAYED AND FOR THAT REASON HE WILL LIKE TO GO HOME. EDUCATED PT ON THE RISK OF GOING HOME. CHARGE NURSE WAS NOTIFIED, SERVICER SPOKE TO HIM AT BEDSIDE ABOUT THE RISKS AND WHAT WE COULD DO TO MAKE HIM STAY AND GET TREATMENT. PT WAS ADAMANT AND INSISTED ON GOING BUT WILL NOT SIGN THE AMA FORM. PT O2 SAT WAS 78% ON 10L OZ HIGH FLOW NC. PT GOT READY AND DRESSED TO LEAVE. IV DISCONTINUED. PT WALKED TOWARDS EXIT AND WAS EXTREMELY DYSPNEIC, ON 10L O2. PT THEN DECIDED TO STAY AND GET TREATMENT GIVEN HE COULDN'T WALK OR DO ANY ACTIVITY WITHOUT BEING SOA. PT WAS SETTLED IN BED, LORAZEPAM GIVEN, BIPAP APPLIED AND NICOTINE PATCH GIVEN. O2 SAT 98% ON BIPAP. IV STARTED, FLUIDS AND CARDIZEM CONTINUED. WILL CONTINUE TO MONITOR.
--- NOTE | 2019-03-03 09:23 | EKG ---
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 : 1955 Requested By: Edwardo Almonte Order Number: [id number] MD: Leonard Lopez Measurements Intervals [place] Rate: 159 P: [place]: QRS: -46 QRSD: 106 T: 81 QT: 283 QTc: 461 Interpretive Statements Atrial flutter/fibrillation Poor R wave progression Inferior infarct, age indeterminate Compared to ECG 10/06/2010 01:47:18 Atrial flutter has replaced sinus rhythm premature ventricular complexes are no longer present Electronically Signed On 03-03-2019 9:23:02 CDT by Leonard Lopez [email or web address] ��������������������������������������������� <ELECTRONICALLY SIGNED> ���������������������������������������� By: Leonard Lopez MD, [facility] ��������������������������������������������� 03/03/19 0923 13 13 Leonard Lopez MD, [facility] /EPI
--- NOTE | 2019-03-03 09:24 | EKG ---
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 : 1955 Requested By: Edwardo Almonte Order Number: [id number] MD: Leonard Lopez Measurements Intervals [place] Rate: 149 P: [place]: QRS: -67 QRSD: 101 T: 60 QT: 321 QTc: 506 Interpretive Statements Atrial flutter Poor R wave progression Possible inferior infarct, age indeterminate Prolonged QT interval Compared to ECG 10/06/2010 01:47:18 No significant change was found Electronically Signed On 03-03-2019 9:23:56 CDT by Leonard Lopez [email or web address] ��������������������������������������������� <ELECTRONICALLY SIGNED> ���������������������������������������� By: Leonard Lopez MD, [facility] ��������������������������������������������� 03/03/19 0923 42 42 Leonard Lopez MD, [facility] /EPI
--- NOTE | 2019-03-03 09:32 | EKG ---
[address] [place] [address] ELECTROCARDIOGRAM REPORT Name: RACHID DIAMOND Room #: 207-P ADM IN M.R.#: [id number] ������������������ Admission: 03/02/19 ������������������ Attend Phys: Rasheed Baca MD Discharge: ������������������ Date of : 59 Report #: [id number] ����������������������������������������������������������������� [id number] THIS REPORT FOR: //name// [facility] Test Date: 2019-03-03 Test Time: 08:24:48 Pat Name: RACHID DIAMOND Department: Room: 207 P Gender: M Life Care Planner: SHAZIA : 1955 Requested By: Leonard Lopez Order Number: [id number] MD: Leonard Lopez Measurements Intervals [place] Rate: 72 P: 61 WI: 197 QRS: -51 QRSD: 115 T: 18 QT: 387 QTc: 424 Interpretive Statements Sinus rhythm Left anterior fascicular block Cannot rule out inferior infarct, old Compared to ECG 10/06/2010 01:47:18 Sinus rhythm has replaced atrial flutter Electronically Signed On 03-03-2019 9:32:43 CDT by Leonard Lopez [email or web address] ��������������������������������������������� <ELECTRONICALLY SIGNED> ���������������������������������������� By: Leonard Lopez MD, [facility] ��������������������������������������������� 03/03/19 0932 3 Leonard Lopez MD, [facility] /EPI
--- NOTE | 2019-03-03 10:08 | NUR ---
Nutrition: pt admitted with respiratory distress, CAP, new onset afib/RVR. Seen due to high risk screen for poor intake/weight loss. Pt reports he has been eating fine but has experienced an 8% weight loss since september-. PMH: right lobectomy, L nephrectomy, COPD, DM, smoker. Suspect possible hypermetabolic state. BMI remains 39.4, obesity class 2. Attempted to leave AMA this morning but got too SOB. Hx medical noncompliance. A1C pending, K-5.7. BG 158. NPO for possible test. Pt very preoccupied with when he can eat, Is "starving". Reports not following any diet at home and is not interested in education prior to discharge. Place as low risk.
--- NOTE | 2019-03-03 10:18 | 2DMMODE ---
[facility] [address] [place] [address] 2 D/M-MODE ECHOCARDIOGRAM Name: RACHID DIAMOND [place] Room #: 207-P ADM IN M.R.#: [id number] ������������� Admission: 03/02/19 ������������� Attend Phys: Rasheed Baca MD Discharge: ��� ������������� ��� Date of : 59 Date of Service: 03/03/19 1018 �� Report #: [id number] �������� ��������������������������������������������[id number] THIS REPORT FOR: //name// APPROVED REPORT Study performed: 03/03/2019 08:29:48 EXAM: Comprehensive 2D, Doppler, and color-flow Echocardiogram Patient Location: Bedside Room #: [facility] Status: routine BSA: 2.39 HR: 72 bpm BP: 141/82 mmHg Rhythm: NSR Other Information Study Quality: Adequate Technically limited study due to body habitus, lung disease. Risk Factors: Cardiac Risk Factors: HTN, Smoking Indications COPD Diabetes Dyspnea 2D Dimensions IVSd: 10.54 (7-11mm) LVOT Diam: 20.00 (18-24mm) LVDd: 48.15 mm PWd: 11.28 (7-11mm) Ascending Ao: 39.10 (22-36mm) LVDs: 40.97 (25-40mm) Aortic Root: 39.01 mm LV Single Plane 4CH: 37.92 % LV Single Plane 2CH: 41.91 % Biplane EF: 39.0 % Volumes Left Atrial Volume (Systole) Single Plane 4CH: 57.73 mL Single Plane 2CH: 82.90 mL LA ESV Index: 33.00 mL/m2 Aortic Valve [facility] [address] [place] [address] 2 D/M-MODE ECHOCARDIOGRAM Name: DARARACHID LEE Room #: 207-P ADM IN M.R.#: [id number] ������������� Admission: 03/02/19 ������������� Attend Phys: Rasheed Baca MD Discharge: ��� ������������� ��� Date of : 59 Date of Service: 03/03/19 1018 �� Report #: [id number] �������� ��������������������������������������������[id number] AoV Peak Miguelangel.: 1.38 m/s AO Peak Gr.: 7.57 mmHg LVOT Max P.27 mmHg LVOT Max V: 1.03 m/s RHONDA Vmax: 2.33 cm2 Mitral Valve E/A Ratio: 1.2 MV Decel. Time: 224.88 ms MV E Max Miguelangel.: 0.75 m/s MV A Miguelangel.: 0.63 m/s MV PHT: 65.22 ms IVRT: 62.28 ms TDI E/Lateral E': 6.25 E/Medial E': 10.71 Medial E' Miguelangel.: 0.07 m/s Lateral E' Miguelangel.: 0.12 m/s Pulmonary Valve PV Peak Miguelangel.: 1.16 m/s PV Peak Gr.: 5.41 mmHg Left Ventricle The left ventricle is normal size. There is normal LV segmental wall motion. Borderline concentric left ventricular hypertrophy. Left ventricular systolic function is normal. LVEF is 50%. The left ventricular diastolic function is normal. Right Ventricle Right ventricle is dilated. The right ventricular systolic function is normal. Atria The left atrium size is normal. Right atrium is dilated. Aortic Valve The aortic valve is normal in structure. No aortic regurgitation is present. There is no aortic valvular stenosis. Mitral Valve The mitral valve is normal in structure. There is no mitral valve regurgitation noted. No evidence of mitral valve stenosis. Tricuspid Valve The tricuspid valve is normal in structure. There is no tricuspid valve regurgitation noted. [facility] [address] [place] [address] 2 D/M-MODE ECHOCARDIOGRAM Name: RACHID DIAMOND CITLALI Room #: 207-P ADM IN M.R.#: [id number] ������������� Admission: 03/02/19 ������������� Attend Phys: Rasheed Baca MD Discharge: ��� ������������� ��� Date of : 59 Date of Service: 03/03/19 1018 �� Report #: [id number] �������� ��������������������������������������������[id number] Pulmonic Valve The pulmonary valve is normal in structure. There is no pulmonic valvular regurgitation. Great Vessels The aortic root is normal in size. IVC is not well visualized. Pericardium There is no pericardial effusion. <Conclusion> Technically difficult study Left ventricular systolic function is normal. LVEF is 50-55%. There is normal LV segmental wall motion. The aortic valve is normal in structure. No aortic regurgitation or stenosis The mitral valve is normal in structure. No mitral valve regurgitation Pulmonary artery pressure could not be reliably ascertained There is no pericardial effusion. ��������������������������������������������� <ELECTRONICALLY SIGNED> ���������������������������������������� By: Leonard Lopez MD, [facility] ��������������������������������������������� 03/03/19 1018 1018 1018 Leonard Lopez MD, [facility] /INF
[2019-03-03 12:11] LABS: GLYCOHEMOGLOBIN (HGB A1C) 5.8 % (4.8-5.6)
--- NOTE | 2019-03-03 19:12 | NUR ---
ASSUMED CARE OF PT AT SHIFT CHANGE. ASSESSMENTS CHARTED. MEDS GIVEN PER NOV. PT REFUSED LASIX MED THIS AM, STATED THAT IT MAKES HIS LEGS AND HANDS CRAMP. EDUCATION GIVEN ON POTASSIUM DEPLETION WITH LASIX, AND THAT POTASSIUM CAN BE REPLACED. PT STILL REFUSED MEDS. PT ALERT AND ORIENTED, VSS, C/O BACK PAIN- MANAGED WITH PO PAIN MEDS. PT UP WITH PHYSICAL THERAPY THIS SHIFT TOLERATING WELL. FAMILY AT BEDSIDE. PT ON BIPAP THIS AM, SWITCHED TO NC PER RT, TOLERATING WELL. DENIES CONCERNS AT THIS TIME. WILL CONT TO MONITOR AND FOLLOW POC.
--- NOTE | 2019-03-03 22:56 | NUR ---
PATIENT C/O CHEST PAIN AROUND 2029. SAID PAIN STARTED OUT A 4 AND WENT UP TO 6. BP WAS 152/82, P WAS 133. 1 NITRO WAS GIVEN BY LORAINE Chavez RN. EKG WAS DONE. WITHIN 3 MIN CHEST PAIN WAS GONE. BY 2039 HR WAS DOWN TO 89. OF THIS WRITING PATIIENT IS DOING GOOD. AT BS.
[2019-03-04] VITALS (7 sets, daily range): BP systolic 104–143; BP diastolic 48–67
[2019-03-04 05:19] LABS: HEMATOCRIT 39.1 % (42.0-52.0); HEMOGLOBIN 12.8 gm/dL (14.0-18.0); MCHC 32.7 g/dL (28.0-37.0); MCV 122.1 fL (80.0-100.0); RBC 3.2 mil/uL (4.50-6.00); RDW 17.6 % (10.5-14.5); WBC 7.1 thou/uL (4.0-11.0)
[2019-03-04 05:30] LABS: ANION GAP 5 mmol/L (7-16); BUN 29 mg/dL (7-18); CALCIUM 9.4 mg/dL (8.5-10.1); CHLORIDE 106 mmol/L (98-107); CO2 31 mmol/L (21-32); GLUCOSE 193 mg/dL (74-106); MAGNESIUM 2.2 mg/dL (1.8-2.4); POTASSIUM 5.6 mmol/L (3.5-5.1); SODIUM 142 mmol/L (136-145); TROPONIN-I <0.06 ng/mL (<0.06)
--- NOTE | 2019-03-04 06:08 | NUR ---
PATIENT ALERT AND ORIENTED X4. AT BS. ACCUCHECK 199, 3 UNITS LISPRO GIVEN. NO MORE C/O CHEST PAIN SINCE LAST NIGHT. PULSE AT THIS TIME IS 71. PAIN MED GIVEN X2 WITH MODERATE RELIEF. O2 AT 6L. HAS GENERALIZED EDEMA BUT FEET NOT EDEMATOUS YESTERDAY. SLEPT OFF AND ON DURING NIGHT.
[2019-03-04 11:26] LABS: URINE BILIRUBIN NEGATIVE (Negative); URINE BLOOD NEGATIVE (Negative); URINE CLARITY CLEAR; URINE COLOR YELLOW; URINE GLUCOSE-RANDOM* NEGATIVE (Negative); URINE KETONES NEGATIVE (Negative); URINE LEUKOCYTES-REFLEX NEGATIVE (Negative); URINE NITRITE-REFLEX NEGATIVE (Negative); URINE PROTEIN (DIPSTICK) NEGATIVE (Negative); URINE SPECIFIC GRAVITY 1.015 (1.005-1.035)
--- NOTE | 2019-03-04 14:58 | NUR ---
Case opened to follow for dc planning. Pt a&ox4 and indicates that he lives at home with his . He has 2 steps to enter the front door and one through the garage. He does have a scooter, cane and rwalker if needed. He is indep and drives but is sob at times. He was on home o2 until recently and can not recall the company that supplied it. He states his oncologist did not complete the recert form and the company picked up his equipment. He was using 3liters. He denies any hh or snf needs and hopes to dc home over the weekend. He is receptive to home o2 being arranged at id. He is a 2+pack a day smoker and is now using a nicotine patch. Cm role introduced. Will follow along to coordinate home o2. He would like to use the same company but has no preference if we need to arrange the setup through an different one.
--- NOTE | 2019-03-04 16:06 | EKG ---
[address] [place] [address] ELECTROCARDIOGRAM REPORT Name: RACHID DIAMOND CITLALI Room #: 207-P ADM IN M.R.#: [id number] ������������������ Admission: 03/02/19 ������������������ Attend Phys: Rasheed Baca MD Discharge: ������������������ Date of : 59 Report #: [id number] ����������������������������������������������������������������� [id number] THIS REPORT FOR: //name// [facility] Test Date: 2019-03-03 Test Time: 20:40:00 Pat Name: RACHID DIAMOND Department: Room: 207 P Gender: M Line Person: LEXA : 1955 Requested By: Lea Acevedo Order Number: [id number] MD: Leonard Lopez Measurements Intervals [place] Rate: 89 P: 58 MA: 192 QRS: -53 QRSD: 112 T: 47 QT: 315 QTc: 384 Interpretive Statements Sinus rhythm Left anterior fascicular block Poor R wave progression Nonspecific intraventricular conduction delay Compared to ECG 03/03/2019 08:24:48 No significant changes Electronically Signed On 03-04-2019 16:06:15 CDT by Lenoard Lopez [email or web address] ��������������������������������������������� <ELECTRONICALLY SIGNED> ���������������������������������������� By: Leonard Lopez MD, [facility] ��������������������������������������������� 03/04/19 1606 39 39 Leonard Lopez MD, [facility] /EPI
--- NOTE | 2019-03-04 16:11 | EKG ---
[place] [address] [address] [place] [address] ELECTROCARDIOGRAM REPORT Name: RACHID DIAMOND Room #: 207-P ADM IN M.R.#: [id number] ������������������ Admission: 03/02/19 ������������������ Attend Phys: Rasheed Baca MD Discharge: ������������������ Date of : 59 Report #: [id number] ����������������������������������������������������������������� [id number] THIS REPORT FOR: //name// [facility] Test Date: 2019-03-04 Test Time: 07:35:38 Pat Name: RACHID DIAMOND Department: Room: 207 P Gender: M Cutter Banana Room: SHAZIA : 1955 Requested By: Leonard Lopez Order Number: [id number] MD: Leonard Lopez Measurements Intervals [place] Rate: 87 P: 53 TN: 187 QRS: -52 QRSD: 115 T: 38 QT: 362 QTc: 436 Interpretive Statements Sinus rhythm Left anterior fascicular block Poor R wave progression Compared to ECG 03/03/2019 08:24:48 No significant change was found Electronically Signed On 03-04-2019 16:11:16 CDT by Leonard Lopez [email or web address] ��������������������������������������������� <ELECTRONICALLY SIGNED> ���������������������������������������� By: Leonard Lopez MD, [facility] ��������������������������������������������� 03/04/19 1611 0735 Leonard Lopez MD, [facility] /EPI
--- NOTE | 2019-03-04 16:45 | NUR ---
FAXED REFERRAL TO [facility] PATIENT SPOKE WITH INTAKE AND THEY RECEIVED REFERRAL AND SHOULD BE ABLE TO ACCEPT PT FOR HOME O2. DR. FISHER WILL SIGN SCRIPT ON CHART FOR HOME O2 PLEASE FAX SCRIPT TO [phone] AND CALL TO CONFIRM THAT THEY WILL DELIVER 02 .
[2019-03-05 04:00] VITALS: BP 101/66
[2019-03-05 05:09] LABS: HEMATOCRIT 40.8 % (42.0-52.0); HEMOGLOBIN 13.1 gm/dL (14.0-18.0); MCH 38.6 pg (26.0-34.0); MCHC 32.1 g/dL (28.0-37.0); MCV 120.3 fL (80.0-100.0); RBC 3.39 mil/uL (4.50-6.00); RDW 17.1 % (10.5-14.5); WBC 9.2 thou/uL (4.0-11.0)
[2019-03-05 05:19] LABS: CALCIUM 9.9 mg/dL (8.5-10.1); POTASSIUM 4.7 mmol/L (3.5-5.1)
--- NOTE | 2019-03-05 06:36 | NUR ---
Pt rested well through the night and no changes observed. PRN hydrocodones given for c/o back pain with desired effect achieved. Pt up to the bathroom without difficulty and had BM earlier this am. Am lab results noted, continue with POC.
[2019-03-05 07:50] VITALS: BP 138/61
[2019-03-05 11:43] VITALS: BP 129/59
[2019-03-05] MEDS ORDERED: CARDIZEM CD240 MG PO (14:05)
[2019-03-05] MEDS ORDERED: LASIX 40 MG TAB40 MG PO (14:07)
[2019-03-05] MEDS ORDERED: MUCINEX600 MG PO (14:07)
[2019-03-05] MEDS ORDERED: PREDNISONE 10 M10 M1 PO (14:08)
[2019-03-05] MEDS ORDERED: AZITHROMYCIN 2250 MG PO (14:09)
[2019-03-05] MEDS ORDERED: CEFDINIR300 MG PO (14:09)
[2019-03-05 15:28] VITALS: BP 112/48
[2019-03-05 15:45] VITALS: BP 142/52
--- NOTE | 2019-03-05 16:09 | NUR ---
ASSUMED CARE OF PT AT SHIFT CHANGE. ASSESSMENTS CHARTED. MEDS GIVEN PER NOV. PT ALERT AND ORIENTED. VSS, UP SBA, O2 SATS WNL ON 3-4 L O2. NO S/SX OF CARDIAC OR RESP DISTRESS NOTED. DC ORDERS ACKNOWLEDGED AND IMPLEMENTED. DC PAPERWORK DISCUSSED WITH PT AND SPOUSE. COMMUNICATES UNDERSTANDING. DENIES CONCERNS. O2 COMPANY CALLED, O2 FOR HOME AND PORTABLE SET UP. SCRIPT FAXED TO COMPANY. PT LEFT UNIT WITH PORTABLE O2 TANK, ACCOMPANIED BY SPOUSE AND ALL BELONGINGS BY NURSING STAFF. TELE TAKEN OFF. IV REMOVED.
== END 2019-03-05 16:08 | disposition home or self-care (01) | DRG 291 ==
LOC: ER 20:09 → EROBS 21:07 → 2N 21:07
PROVIDERS: Emergency Medicine; Hospitalist; Nurse Practitioner Family; ADMIT Internal Medicine
PROC: 5A09357 Assistance with Respiratory Ventilation, Less than 24 Consecutive Hours, Continuous Positive Airway Pressure (ICD-10-PCS; principal; 2019-03-02)
PROC: 5A09357 Assistance with Respiratory Ventilation, Less than 24 Consecutive Hours, Continuous Positive Airway Pressure (ICD-10-PCS; 2019-03-03)
PROC: 5A09357 Assistance with Respiratory Ventilation, Less than 24 Consecutive Hours, Continuous Positive Airway Pressure (ICD-10-PCS; 2019-03-04)
DX: I11.0 Hypertensive heart disease with heart failure (principal); J18.9 Pneumonia, unspecified organism; J96.21 Acute and chronic respiratory failure with hypoxia; I50.31 Acute diastolic (congestive) heart failure; J96.22 Acute and chronic respiratory failure with hypercapnia; J44.1 Chronic obstructive pulmonary disease with (acute) exacerbation; I48.92 Unspecified atrial flutter; J44.0 Chronic obstructive pulmonary disease with (acute) lower respiratory infection; E66.01 Morbid (severe) obesity due to excess calories; E78.5 Hyperlipidemia, unspecified; G89.29 Other chronic pain; E11.9 Type 2 diabetes mellitus without complications; J20.9 Acute bronchitis, unspecified; D45 Polycythemia vera; I48.91 Unspecified atrial fibrillation; F17.210 Nicotine dependence, cigarettes, uncomplicated; Z90.49 Acquired absence of other specified parts of digestive tract; Z79.82 Long term (current) use of aspirin; Z79.84 Long term (current) use of oral hypoglycemic drugs; Z88.0 Allergy status to penicillin; Z88.8 Allergy status to other drugs, medicaments and biological substances; Z90.5 Acquired absence of kidney; Z91.14 Patient's other noncompliance with medication regimen; Z68.39 Body mass index [BMI] 39.0-39.9, adult
CPT/HCPCS: 10081

== ENCOUNTER → 2019-03-10 | Outpatient (CLI) | payer OTHER ==
[~2019-03-10] VITALS: Ht 177.8 cm; Wt 123.5 kg
[~2019-03-10] MED LIST changes: +AZITHROMYCIN 2250 MG PO; +CARDIZEM CD240 MG PO; +CEFDINIR300 MG PO; +LASIX 40 MG TAB40 M2 PO; +LASIX 40 MG TAB40 MG PO; +MUCINEX600 MG PO; +PREDNISONE 10 M10 M1 PO; +PREDNISONE 10 M10 MG PO
[2019-03-10 09:37] VITALS: BP 115/62
--- NOTE | 2019-03-10 10:06 | NUR ---
Pain Clinic Assessment: 1. History of Osteoarthritis: Not Applicable History of Rheumatoid Arthritis: Left Lower Extremity Left Upper Extremity Right Lower Extremity Right Upper Extremity 2. Height: 5 ft. 10 in. 177.8 cm. Weight: 272.2 lb. oz. 123.469 kg. Patient's BMI: 39.1 3. Vital Signs: BP: 115/62 Pulse: 82 Resp: 14 Temp: 02 Sat: 97 ECG Mon: 4. Pain Intensity: 5 5. Fall Risk: Dizziness: N Needs help standing or walking: N Fallen in the last 3 months: N Fall risk comments: 6. Patient on Blood Thinner: None 7. History of Hypertension: Y 8. Opioid Therapy greater than 6 weeks: Y Opiate Contract Signed: 12/10/17 9. Risk Assessment Tool Provided: HIGH RISK-14 10. Functional Assessment Tool: 11. Recreational Drug Use: Past greater than 3 mos Drug Type: Tobacco Use: Current Every Day Smoker Tobacco Type: Cigarettes Amount or Packs/day: 1 pack How Many Years: 45 Alcohol Use: No Frequency: Quant:
--- NOTE | 2019-03-11 08:11 | HPC ---
[facility] [place] [address] PAIN MANAGEMENT CONSULTATION Name: RACHID DIAMOND Room #: REG SAJAN Bowen#: [id number] Admission: 03/10/19 ������������������ Attend Phys: Jael Gutierrez Discharge: ������������������ Date of : 59 Report #: [id number] THIS REPORT FOR: //name// CC: Jael Weston DATE OF SERVICE: 03/10/2019 CHIEF COMPLAINT: Osteoarthritis, lumbar spondylosis and chronic back pain. HISTORY OF PRESENT ILLNESS: This is a very pleasant 63-year-old gentleman who returns to the Pain Clinic today for refill of his medications. He tells me he was recently hospitalized for shortness of breath and atrial fibrillation and pneumonia. He tells me that he is feeling much better now. He has almost finished his antibiotics that he was on and he is decreasing smoking. He is down to 1 pack of cigarettes a day. He tells me he is going to quit hopefully by the next time we see him that he has decreased from 2-1/2 packs a day to 1 pack. He says he is feeling better. He has lost some weight. He is on oxygen 3 L at all times and overall does feel better. He feels like maybe getting sick was a good thing for him. He tells me that he has low back pain and bilateral foot pain that he is rating a 5/10 today, worse with walking and standing, and standing is his worst problem. His medication and sitting are very helpful. ALLERGIES: BENADRYL, PENICILLIN, AND METHOCARBAMOL. CURRENT MEDICATIONS: Cardizem 240 mg daily, Lasix 40 mg daily, Mucinex 600 mg every 12 hours, Omnicef 300 mg b.i.d., gabapentin 800 mg 4 times a day, hydrocodone 10/325 three times a day, lorazepam 0.5 mg daily, Avapro 75 mg daily, metformin 500 mg daily, aspirin 81 mg, folic acid, nitro p.r.n. and Hydrea 500 mg daily. PQRS: 1. He has a history of osteoarthritis and a history of rheumatoid arthritis in his upper and lower extremities. 2. Height is 5 feet 10 inches; weight is 272, which is down 12 pounds; BMI is 39. 3. Vital signs: 115/62, pulse is 82, respirations 14, oxygen sat is 97. 4. Pain score is 5/10. 5. Fall risk: Denies dizziness. Does not need help with walking or standing. Has not fallen in the last 3 months. 6. He is not on any blood thinners, but does take medicine for hypertension. 7. Opiate therapy is greater than 6 weeks; therefore, an opioid signed contract is on the chart. His risk assessment tool is high and his functional assessment is 41/70. [address] [address] PAIN MANAGEMENT CONSULTATION Name: RACIHD DIAMOND CITLALI Room #: REG SAJAN Wiseman#: [id number] Admission: 03/10/19 ������������������ Attend Phys: Jael Gutierrez Discharge: ������������������ Date of : 59 Report #: [id number] 8. Recreational drug use in the past. He is a current every day smoker, down from 2-1/2 packs to 1 pack a day and does not drink alcohol. We did check the prescription monitoring system. The patient is filling appropriately for his medications. He is due for his medication fills today. We will check a random drug screen on this patient today since it has been greater than one year since his last screen. PHYSICAL EXAMINATION: GENERAL: This is a very pleasant 63-year-old gentleman who appears his stated age, who does not show signs of any anxiety or overmedication. He is alert and orientated, placing his pain score today at 5/10. HEENT: Normocephalic, atraumatic. Pupils equal, round and reactive to light. Mucous membranes are moist. Hearing is adequate. He does have a nasal cannula in his nares at 3 liters. MUSCULOSKELETAL: The patient moves from sitting to standing slowly. He has an antalgic gait. Complains of lower back pain that does radiate down into his hips and then bilateral feet as well. His lower extremity strength judged to be 5/5 in all major muscle groups. IMPRESSION: 1. Chronic intractable pain with multiple pain generators including spondylosis and degenerative disk disease. 2. Osteoarthritis of multiple joints. 3. Morbid obesity. 4. Chronic obstructive pulmonary disease. 5. Recent pneumonia, wearing nasal cannula supplemental. 6. Polycythemia vera. 7. 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 8. Management of high risk medications under terms of written opioid agreement. We reviewed the fact that opiate medications are being used to provide analgesia adequate to support activities of daily living, not attempting to achieve a specific pain score on the 0-10 Visual Analog Scale. The current opiate medications are providing sufficient analgesia to allow the patient to participate in activities of daily living. The patient is not exhibiting any aberrant behavior suggestive of drug diversion. The patient is not having any adverse reactions to medications. The patient is not suffering from daytime somnolence or mental acuity changes. The patient is managing opiate-induced constipation with appropriate [id number] agents and dietary considerations. The patient was counseled on concern for caution with operating a motor vehicle while using opiate medications. A physical exam was performed and the patient's functional status was evaluated. All patients with back pain were advised against the bed rest greater than 4 days and were advised to return to normal activities. Pain score assessment was [facility] [address] [place] [address] PAIN MANAGEMENT CONSULTATION Name: RACHID DIAMOND Room #: REG [facility].#: [id number] Admission: 03/10/19 ������������������ Attend Phys: Jael Gutierrez Discharge: ������������������ Date of : 59 Report #: [id number] noted and the treatment plan was reviewed with the patient. All current medications, both prescribed and OTC were reviewed and reconciled on the electronic medical record. Tobacco screening was accomplished and smoking cessation was advised when indicated. BMI was noted and diet/exercise modification was recommended for all patients following outside normal parameters. I reviewed with the patient today their responsibilities to safeguard prescription medications, reviewed their responsibility to utilize medications only as prescribed by the physician. They are to seek and receive pain medications only from 1 physician group ( [facility]). They are to use 1 pharmacy and keep the clinic informed if they change pharmacies. Their responsibilities include making followup visits in a timely fashion and to avoid abrupt discontinuation of medication usage. Their responsibilities further include bringing their medications (bottles from the pharmacy with residual pills) to the visit for possible confirmation of pill counts and the patient understands it is their responsibility to submit to random drug screens to ensure both that the medications prescribed are present, and that no other controlled substances are present. All prescriptions provided today were generated electronically. PLAN: 1. We discussed treatment options with the patient today. The patient tells me despite being in the hospital for his pneumonia, overall he is feeling quite well. We discussed his smoking cessation and I encouraged him to continue to decrease this. His goal is to quit smoking completely by the time we see him in 3 months. I informed the patient not to have his family smoke around him since he is wearing oxygen at all times of the day now and he tells me they do smoke outside and he does not wear oxygen when he is currently smoking. He also tells me he has been using the Nicoderm patches at bedtime and does not crave cigarettes in the morning like he used to. 2. Scripts given today for his hydrocodone 10/325 for today, 4-week and 8-week release and his gabapentin 800 mg 4 times a day, #120 with one additional refill. This does place the patient at 30 morphine milligram equivalents (MME), which is under the CDC guidelines. 3. The patient tells me that he does not have any problems with constipation. In fact, he had had some diarrhea while he was on his antibiotics and was having to take antidiarrheal medicine. He is hopeful that will slow down since he is almost off finished with his antibiotics. He is also down 12 pounds since we last saw him. He thinks it may have to do with his diarrhea plus also the Lasix that he is on. 4. The patient tells me his goal is to get to work outside since he is feeling better, work on his cars, but he does have problems standing. 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 5. Dr. Navdeep Maguire did come and see the patient and collaborated care. Follow up in 3 months. ��������������������������������������������� <ELECTRONICALLY SIGNED> ���������������������������������������� By: Jael Gutierrez ��������������������������������������������� 03/11/19 0811 1210 1836 Jael Gutierrez /nt
== END ==
LOC: PAIN 06:43
DX: M51.36 Other intervertebral disc degeneration, lumbar region (principal); M47.816 Spondylosis without myelopathy or radiculopathy, lumbar region; M19.90 Unspecified osteoarthritis, unspecified site; J44.9 Chronic obstructive pulmonary disease, unspecified; E66.01 Morbid (severe) obesity due to excess calories; J18.9 Pneumonia, unspecified organism; D45 Polycythemia vera; Z79.899 Other long term (current) drug therapy

== ENCOUNTER 2019-03-21 07:12 | Emergency (ER) | payer OTHER ==
[~2019-03-21] VITALS: Ht 177.8 cm; Wt 118.8 kg
[2019-03-21 08:47] LABS: ABSOLUTE NEUTROPHILS 2.7 thou/uL (1.4-8.2); BASOPHILS 0.8 % (0.0-2.0); EOSINOPHILS 1.7 % (0.0-3.0); HEMATOCRIT 43.9 % (42.0-52.0); HEMOGLOBIN 14.3 gm/dL (14.0-18.0); LYMPHOCYTES 29.6 % (24.0-44.0); MCH 38.8 pg (26.0-34.0); MCHC 32.6 g/dL (28.0-37.0); MCV 118.9 fL (80.0-100.0); MONOCYTES 5.4 % (1.0-8.0); PLATELET COUNT 166 thou/uL (150-400); POLYS 62.5 % (36.0-66.0); RBC 3.69 mil/uL (4.50-6.00); WBC 4.3 thou/uL (4.0-11.0)
[2019-03-21 08:54] LABS: CALCIUM 8.8 mg/dL (8.5-10.1); POTASSIUM 4.8 mmol/L (3.5-5.1)
[2019-03-21 09:06] VITALS: BP 141/75
[2019-03-21 09:11] LABS: ANISOCYTOSIS 1+; MACROCYTES 3+; PLATELET ESTIMATE NORMAL
== END 2019-03-21 09:00 | disposition home or self-care (01) ==
LOC: ER 07:12
PROVIDERS: Emergency Medicine
DX: S60.415A Abrasion of left ring finger, initial encounter (principal); I82.612 Acute embolism and thrombosis of superficial veins of left upper extremity; F17.210 Nicotine dependence, cigarettes, uncomplicated; I10 Essential (primary) hypertension; E11.9 Type 2 diabetes mellitus without complications; J44.9 Chronic obstructive pulmonary disease, unspecified; Z88.0 Allergy status to penicillin; Z88.8 Allergy status to other drugs, medicaments and biological substances; Z90.11 Acquired absence of right breast and nipple; Z90.2 Acquired absence of lung [part of]; Z90.49 Acquired absence of other specified parts of digestive tract; X58.XXXA Exposure to other specified factors, initial encounter; Y92.89 Other specified places as the place of occurrence of the external cause; Y93.89 Activity, other specified; Y99.8 Other external cause status

== ENCOUNTER → 2019-06-09 | Outpatient (CLI) | payer OTHER ==
[~2019-06-09] VITALS: Ht 177.8 cm; Wt 122.7 kg
[~2019-06-09] MED LIST changes: +LOSARTAN POTASS50 MG PO
[2019-06-09 08:59] VITALS: BP 133/76
--- NOTE | 2019-06-09 09:13 | NUR ---
Pain Clinic Assessment: 1. History of Osteoarthritis: Not Applicable History of Rheumatoid Arthritis: Left Lower Extremity Left Upper Extremity Right Lower Extremity Right Upper Extremity 2. Height: 5 ft. 10 in. 177.8 cm. Weight: 270.4 lb. oz. 122.653 kg. Patient's BMI: 38.8 3. Vital Signs: BP: 133/76 Pulse: 99 Resp: 16 Temp: 02 Sat: 92 ECG Mon: 4. Pain Intensity: 6 5. Fall Risk: Dizziness: N Needs help standing or walking: N Fallen in the last 3 months: N Fall risk comments: 6. Patient on Blood Thinner: None 7. History of Hypertension: Y 8. Opioid Therapy greater than 6 weeks: Y Opiate Contract Signed: 12/10/17 9. Risk Assessment Tool Provided: HIGH RISK-14 10. Functional Assessment Tool: 11. Recreational Drug Use: Past greater than 3 mos Drug Type: Tobacco Use: Current Every Day Smoker Tobacco Type: Cigarettes Amount or Packs/day: 2 PACKS PD How Many Years: 46 Alcohol Use: No Frequency: Quant:
--- NOTE | 2019-06-10 07:23 | HPC ---
[facility] [place] [address] PAIN MANAGEMENT CONSULTATION Name: RACHID DIAMOND Room #: REG SAJAN Bowen#: [id number] Admission: 06/09/19 ������������������ Attend Phys: Jael Gutierrez Discharge: ������������������ Date of : 59 Report #: [id number] THIS REPORT FOR: //name// CC: Jael Weston MD DATE OF SERVICE: 06/09/2019 CHIEF COMPLAINT: Osteoarthritis, lumbar spondylosis with chronic low back pain. HISTORY OF PRESENT ILLNESS: This is a very pleasant 63-year-old gentleman who returns to the pain clinic today for refill of his medications that he takes for his ongoing low back pain and osteoarthritis. He tells me he has continued to feel quite well. He has lost another 2 pounds since we had last seen him though he has started smoking a little bit more back up to 2 packs a day, which is still a decrease in his original smoking but more than the 1 pack that he was smoking a day when I saw him at his last visit. He reassures me that he does not wear his oxygen when he is smoking, but he feels that the oxygen is very beneficial in part of why he is feeling better. He does tell me that he has been under a lot of stress with some family issues at home and that is why he started smoking more lately. The patient does tell me that his lower back and feet continue to hurt, worse with walking and standing, but his medications are very beneficial. He does not suffer any problems of constipation. His pain score today is a 3/10. He would like a refill of his gabapentin and hydrocodone today. ALLERGIES: BENADRYL, PENICILLIN and METHOCARBAMOL. MEDICATIONS: Losartan 50 mg daily, gabapentin 800 mg q.i.d., hydrocodone 10/325 three times a day, diltiazem, Lasix, Mucinex, prednisone, lorazepam, metformin, aspirin, folic acid, albuterol and Hydrea. PQRS: 1. He has history of osteoarthritis in multiple joints as well as rheumatoid arthritis in his upper and lower extremities. 2. Height is 5 feet 10 inches, weight is 270, BMI is 38. 3. Vital signs 133/76, pulse is 99, respirations 16, oxygen sat is 96. 4. Pain score 6/10. 5. Fall risk. Denies dizziness, does not need help walking or standing, has not fallen in the last 3 months. 6. The patient is not on any blood thinners but does take medicine for hypertension. 7. Opioid therapy is greater than 6 weeks therefore an opioid signed contract is on the chart. His risk assessment tool is high[place] [address] PAIN MANAGEMENT CONSULTATION Name: DARARCAHID LEE Room #: REG CLRajat Wiseman#: [id number] Admission: 06/09/19 ������������������ Attend Phys: Jael Gutierrez Discharge: ������������������ Date of : 59 Report #: [id number] is 41/70. 8. Recreational drug use in the past. He is currently smoking cigarettes 2 packs a day and does not drink alcohol. According to the prescription monitoring system, the patient is filling appropriately for his medications and there is a recent drug screen on the chart that is appropriate for his medications as well. PHYSICAL EXAMINATION: GENERAL: This is a well-developed, well-nourished, slightly obese 63-year-old who appears his stated age, placing his current pain score today at 6/10. HEENT: Normocephalic, atraumatic. Extraocular eye muscles are intact. MUSCULOSKELETAL: The patient moves from sitting to standing position with limited difficulty. He does have an antalgic gait. His lower back pain radiates down his hips into his bilateral feet. His lower extremity strength judged to be 5/5 in all major muscle groups. IMPRESSION: 1. Chronic intractable pain with multiple pain generators including spondylosis and degenerative disk disease. 2. Osteoarthritis of multiple joints. 3. Morbid obesity. 4. Chronic obstructive pulmonary disease, using supplemental oxygen. 5. Polycythemia vera. 6. 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 7. Management of opioid medications under terms of written agreement. We reviewed the fact that opiate medications are being used to provide analgesia adequate to support activities of daily living, not attempting to achieve a specific pain score on the 0-10 Visual Analog Scale. The current opiate medications are providing sufficient analgesia to allow the patient to participate in activities of daily living. The patient is not exhibiting any aberrant behavior suggestive of drug diversion. The patient is not having any adverse reactions to medications. The patient is not suffering from daytime somnolence or mental acuity changes. The patient is managing opiate-induced constipation with appropriate unpp-nzz-yafmgqm agents and dietary considerations. The patient was counseled on concern for caution with operating a motor vehicle while using opiate medications. A physical exam was performed and the patient's functional status was evaluated. All patients with back pain were advised against the bed rest greater than 4 days and were advised to return to normal activities. Pain score assessment was noted and the treatment plan was reviewed with the patient. All current medications, both prescribed and OTC were reviewed and reconciled on the electronic medical record. Tobacco screening was accomplished and smoking cessation was advised when indicated. BMI was noted and diet/exercise [address] [address] PAIN MANAGEMENT CONSULTATION Name: RACHID DIAMOND Room #: REG [facility]#: [id number] Admission: 06/09/19 ������������������ Attend Phys: Jael Gutierrez Discharge: ������������������ Date of : 59 Report #: [id number] modification was recommended for all patients following outside normal parameters. I reviewed with the patient today their responsibilities to safeguard prescription medications, reviewed their responsibility to utilize medications only as prescribed by the physician. They are to seek and receive pain medications only from 1 physician group ( [facility]). They are to use 1 pharmacy and keep the clinic informed if they change pharmacies. Their responsibilities include making followup visits in a timely fashion and to avoid abrupt discontinuation of medication usage. Their responsibilities further include bringing their medications (bottles from the pharmacy with residual pills) to the visit for possible confirmation of pill counts and the patient understands it is their responsibility to submit to random drug screens to ensure both that the medications prescribed are present, and that no other controlled substances are present. All prescriptions provided today were generated electronically. PLAN: 1. We discussed treatment options with the patient today. The patient finds his medications very beneficial. He is at 30 morphine milliequivalent according to the CDC guidelines, which is very low dose. We will continue his hydrocodone 10/325, #90 for today, 4-week and 8-week release as well as his gabapentin 800 mg 4 times a day, #120 with one additional refill. 2. We did discuss his smoking cessation encouraging him to decrease back to at least 1 pack a day. The patient tells me he will try to do that. He was feeling better when he was smoking less. 3. The patient will continue to try and lose weight. He had been down to 260 and had recently gained some due to eating extra ice cream, so he will try to decrease that and get back to the weight he was at 6 weeks ago. 4. The patient is seen in collaboration with Dr. Navdeep Maguire who did see the patient as well today. The patient will return in 3 months. ��������������������������������������������� <ELECTRONICALLY SIGNED> ���������������������������������������� By: Jael Gutierrez ��������������������������������������������� 06/10/19 0723 [id number] Jael Gutierrez /nt
== END ==
LOC: PAIN 06:38
DX: M47.816 Spondylosis without myelopathy or radiculopathy, lumbar region (principal); M51.36 Other intervertebral disc degeneration, lumbar region; M19.90 Unspecified osteoarthritis, unspecified site; E66.01 Morbid (severe) obesity due to excess calories; J44.9 Chronic obstructive pulmonary disease, unspecified; D45 Polycythemia vera; Z79.899 Other long term (current) drug therapy; Z88.0 Allergy status to penicillin; Z88.8 Allergy status to other drugs, medicaments and biological substances

== ENCOUNTER → 2019-09-08 | Outpatient (CLI) | payer OTHER ==
[~2019-09-08] VITALS: Ht 177.8 cm; Wt 118.6 kg
[2019-09-08 10:02] VITALS: BP 112/65
--- NOTE | 2019-09-08 10:21 | NUR ---
Pain Clinic Assessment: 1. History of Osteoarthritis: BACK History of Rheumatoid Arthritis: Left Lower Extremity Left Upper Extremity Right Lower Extremity Right Upper Extremity 2. Height: 5 ft. 10 in. 177.8 cm. Weight: 261.4 lb. oz. 118.571 kg. Patient's BMI: 37.5 3. Vital Signs: BP: 112/65 Pulse: 100 Resp: 16 Temp: 02 Sat: 95 ECG Mon: 4. Pain Intensity: 5-6 5. Fall Risk: Dizziness: N Needs help standing or walking: N Fallen in the last 3 months: N Fall risk comments: 6. Patient on Blood Thinner: None 7. History of Hypertension: Y 8. Opioid Therapy greater than 6 weeks: Y Opiate Contract Signed: 12/10/17 9. Risk Assessment Tool Provided: HIGH RISK-14 10. Functional Assessment Tool: 11. Recreational Drug Use: Past greater than 3 mos Drug Type: MARAJUANA Tobacco Use: Current Every Day Smoker Tobacco Type: Cigarettes Amount or Packs/day: 2 1/2 PPD How Many Years: 46 Alcohol Use: No Frequency: Quant:
--- NOTE | 2019-09-12 09:44 | HPC ---
[facility] [address] [place] [address] PAIN MANAGEMENT CONSULTATION Name: RACHID DIAMOND Room #: REG SAJAN BowersMaryTootie.#: [id number] Admission: 09/08/19 Attend Phys: Jael Gutierrez Discharge: Date of : 59 Report #: [id number] THIS REPORT FOR: //name// CC: Jael Maguire MD DATE OF SERVICE: 09/08/2019 CHIEF COMPLAINT: Osteoarthritis, lumbar spondylosis and chronic back pain. HISTORY OF PRESENT ILLNESS: This is a 64-year-old gentleman who returns to the pain clinic today for continued management of his low back pain and osteoarthritis. He reports today of a pain score of 5-6 in his left hip and low back. He does have numbness in his bilateral feet as well. Otherwise, his pain is aching feeling. He reports pain is worse with walking and standing. The medications are very beneficial allowing him to be active in his garage tinkering on his cars. He denies any problem with daytime sleepiness or constipation. He would like refills of his gabapentin and hydrocodone today. ALLERGIES: BENADRYL, PENICILLIN, METHOCARBAMOL. CURRENT LIST OF MEDICATIONS: Hydrocodone 10/325 t.i.d. p.r.n., gabapentin 800 mg 4 times a day, losartan, Cardizem, Lasix, Mucinex, prednisone, Ativan, Glucophage, aspirin, folic acid, and Hydrea. PATIENT'S PQRS: 1. He has osteoarthritis in multiple joints in his upper and lower extremities as well as rheumatoid arthritis. 2. Height is 5 feet 10 inches, weight is 261. BMI is 37. 3. Vital signs 112/65, pulse is 100, respirations 16, oxygen sat is 95. 4. Pain score is 5-6. 5. Denies dizziness, does not need help walking or standing, has not fallen in the last 3 months. 6. The patient is not on any blood thinners, but does take medicine for hypertension. 7. Opioid therapy is greater than 6 weeks; therefore, an opioid signed contract is on the chart. Risk assessment is high. Functional assessment is 41/70. 8. Recreational drug use in the past, he is a current smoker of 2-1/2 packs a day. We did discuss smoking cessation and does not drink alcohol. According to the prescription monitoring system, the patient is filling appropriately from Dr. Navdeep Maguire who fills his hydrocodone. There are prescriptions for lorazepam from his primary doctor. The patient reports he takes those sparingly and not at the same time of his hydrocodone. There is a [address] [address] PAIN MANAGEMENT CONSULTATION Name: DARA,RCAHID CITLALI Room #: REG [facility] Bowen#: [id number] Admission: 09/08/19 Attend Phys: Jael Gutierrez Discharge: Date of : 59 Report #: [id number] recent drug screen on the chart that is appropriate as well. PHYSICAL EXAMINATION: GENERAL: This is a well-developed, well-nourished, well-hydrated 64-year-old gentleman who appears his stated age, placing his current pain score today at 5-6. HEENT: Normocephalic, atraumatic. Extraocular eye muscles are intact. Mucous membranes are moist. MUSCULOSKELETAL: He has an antalgic gait. He has pain across his lumbosacral region that does radiate into his bilateral hips, numbness in his bilateral feet. His lower extremity strength judged to be 5/5 in all major muscle groups. He does move from sitting to standing with slight difficulty. IMPRESSION: 1. Chronic intractable pain with multiple pain generators including spondylosis and degenerative disk disease. 2. Osteoarthritis of multiple joints. 3. Morbid obesity. 4. Chronic obstructive pulmonary disease. 5. Polycythemia vera. 6. 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 7. Management of opioid medications under terms of written opioid agreement. We reviewed the fact that opiate medications are being used to provide analgesia adequate to support activities of daily living, not attempting to achieve a specific pain score on the 0-10 Visual Analog Scale. The current opiate medications are providing sufficient analgesia to allow the patient to participate in activities of daily living. The patient is not exhibiting any aberrant behavior suggestive of drug diversion. The patient is not having any adverse reactions to medications. The patient is not suffering from daytime somnolence or mental acuity changes. The patient is managing opiate-induced constipation with appropriate xuvu-asz-vefqnoo agents and dietary considerations. The patient was counseled on concern for caution with operating a motor vehicle while using opiate medications. A physical exam was performed and the patient's functional status was evaluated. All patients with back pain were advised against the bed rest greater than 4 days and were advised to return to normal activities. Pain score assessment was noted and the treatment plan was reviewed with the patient. All current medications, both prescribed and OTC were reviewed and reconciled on the electronic medical record. Tobacco screening was accomplished and smoking cessation was advised when indicated. BMI was noted and diet/exercise modification was recommended for all patients following outside normal parameters. I reviewed with the patient today their responsibilities to [address] [address] PAIN MANAGEMENT CONSULTATION Name: RACHID DIAMOND Room #: REG CLRajat Wiseman#: [id number] Admission: 09/08/19 Attend Phys: Jael Gutierrez Discharge: Date of : 59 Report #: [id number] prescription medications, reviewed their responsibility to utilize medications only as prescribed by the physician. They are to seek and receive pain medications only from 1 physician group ( [facility]). They are to use 1 pharmacy and keep the clinic informed if they change pharmacies. Their responsibilities include making followup visits in a timely fashion and to avoid abrupt discontinuation of medication usage. Their responsibilities further include bringing their medications (bottles from the pharmacy with residual pills) to the visit for possible confirmation of pill counts and the patient understands it is their responsibility to submit to random drug screens to ensure both that the medications prescribed are present, and that no other controlled substances are present. All prescriptions provided today were generated electronically. PLAN: 1. We discussed treatment options with the patient today. The patient finds his medication very beneficial enabling him to be as active as he would like. Scripts were written for his hydrocodone 10/325, #90. This places him at 30 morphine milliequivalents a day. According to the CDC guidelines, Dr. Navdeep Maguire will e-scribe these prescriptions. 2. We will continue him on gabapentin 800 mg q.i.d. This medication is beneficial for his neuropathy. Three-month supply was sent to his pharmacy. 3. We did talk about tobacco use. He had decreased his use of cigarettes and has slowly increased. He reports he is having significant stress with a son that has been having some financial issues, has lived with him for a while and is now living in a homeless fdc. He said this is causing significant stress for him and he did increase his tobacco use, he will try to decrease it despite the stress. He knows he felt better when he was smoking less. 4. The patient will return in 3 months. The patient is seen in collaboration today with Dr. Navdeep Maguire. <ELECTRONICALLY SIGNED> By: Jael Gutierrez 09/12/19 0944 [id number] Jael Gutierrez /nt
== END ==
LOC: PAIN 06:48
DX: M47.816 Spondylosis without myelopathy or radiculopathy, lumbar region (principal); M19.90 Unspecified osteoarthritis, unspecified site; G89.4 Chronic pain syndrome; E66.09 Other obesity due to excess calories; J44.9 Chronic obstructive pulmonary disease, unspecified; Z79.891 Long term (current) use of opiate analgesic

== ENCOUNTER → 2019-12-08 | Outpatient (CLI) | payer OTHER ==
[~2019-12-08] VITALS: Ht 177.8 cm; Wt 123.7 kg
[~2019-12-08] MED LIST changes: +CYMBALTA30 MG PO
[2019-12-08 09:48] VITALS: BP 154/84
--- NOTE | 2019-12-08 10:05 | NUR ---
Pain Clinic Assessment: 1. History of Osteoarthritis: BACK History of Rheumatoid Arthritis: Left Lower Extremity Left Upper Extremity Right Lower Extremity Right Upper Extremity 2. Height: 5 ft. 10 in. 177.8 cm. Weight: 272.6 lb. oz. 123.651 kg. Patient's BMI: 39.1 3. Vital Signs: BP: 154/84 Pulse: 88 Resp: 20 Temp: 02 Sat: 91 ECG Mon: 4. Pain Intensity: 6 5. Fall Risk: Dizziness: N Needs help standing or walking: N Fallen in the last 3 months: N Fall risk comments: 6. Patient on Blood Thinner: None 7. History of Hypertension: Y 8. Opioid Therapy greater than 6 weeks: Y Opiate Contract Signed: 12/10/17 9. Risk Assessment Tool Provided: HIGH RISK-14 10. Functional Assessment Tool: 11. Recreational Drug Use: Past greater than 3 mos Drug Type: Tobacco Use: Current Every Day Smoker Tobacco Type: Cigarettes Amount or Packs/day: 1 1/2 PPD How Many Years: 47 Alcohol Use: Past use Frequency: Quant: QUIT 20 YEARS AGO
--- NOTE | 2019-12-08 15:06 | HPC ---
[facility] [address] [address] PAIN MANAGEMENT CONSULTATION Name: RACHID DIAMOND Room #: REG SAJAN BowersMaryTootie.#: [id number] Admission: 12/08/19 Attend Phys: Jael Gutierrez Discharge: Date of : 59 Report #: [id number] THIS REPORT FOR: cc: Renny Weston MD, Kirk D. MD Hocker,Jael ROMERO ~ CC: Jael Weston DATE OF SERVICE: 12/08/2019 CHIEF COMPLAINT: Osteoarthritis, lumbar spondylosis with chronic low back pain. HISTORY OF PRESENT ILLNESS: This is a very pleasant 64-year-old gentleman who returns to the pain clinic today for refill of his medications. He reports that his pain score is 6/10. Pain is mostly located in his lower back and has significant numbness and tingling in his bilateral feet from his neuropathy. He reports that it is an aching, constant pain, worse with any activity, standing and walking. He feels the medications are very beneficial as well as sitting. He denies problems with constipation as long as he drinks plenty of liquids and takes some kpku-aqy-jzxtubi stool softeners. The patient is not wearing any oxygen today. He said he still has it at home and wears it quite frequently when he is in the house. He reports his grandson has moved in with him and has been very helpful in caring for him. He also reports he is having a stressful time with his son who has multiple health issues and has become an alcoholic. He reports this has caused him a great deal of stress and depression. He is wondering if he is able to start an antidepressant medicine through our clinic today. ALLERGIES: BENADRYL, PENICILLIN, METHOCARBAMOL. CURRENT LIST OF MEDICATIONS: Hydrocodone 10/325 p.r.n., gabapentin 800 mg q.i.d., losartan, diltiazem, Lasix, Mucinex, Glucophage, aspirin, folic acid, albuterol, nitro, Hydrea. PQRS: 1. He has osteoarthritis in multiple joints as well as rheumatoid arthritis. 2. Height is 5 feet 10 inches, weight is 272, BMI is 39. Vital signs 154/84, pulse is 88, respirations 20, oxygen sat is 91. Pain score is 6/10. 3. Fall risk. Denies dizziness, does not need help walking or standing, has not fallen in the last 3 months. The patient is not on any blood thinners, but does have medicine for hypertension. Opioid therapy is greater than 6 weeks; therefore, an opioid signed contract is on the chart. Risk assessment is high. Functional assessment is 41/70. Recreational drug use in the past. He is a current smoker of 1-1/2 packs a day, alcohol in the past. [address] [address] PAIN MANAGEMENT CONSULTATION Name: RACHID DIAMOND CITLALI Room #: REG [facility].#: [id number] Admission: 12/08/19 Attend Phys: Jael Gutierrez Discharge: Date of : 59 Report #: [id number] According to the prescription monitoring system, the patient is filling appropriately for his medications, filling them in a timely fashion. He is due to fill those today. His morphine mEq is 30 MME per day. There is a recent drug screen on the chart that is appropriate as well. PHYSICAL EXAMINATION: GENERAL: This is a well-developed, well-nourished, obese 64-year-old gentleman who appears his stated age, placing his current pain score at 6/10. His affect is depressed today. HEENT: Normocephalic, atraumatic. Extraocular eye muscles are intact. Mucous membranes are moist. LUNGS: Diminished, has some shortness of breath, without his oxygen today. MUSCULOSKELETAL: He has lower back pain that radiates into his hips and neuropathy in his bilateral feet that is constant. Lower extremity strength judged to be 5/5 in all major muscle groups. He has an antalgic gait. He moves from sitting to standing position using the armrest and is very slow. IMPRESSION: 1. Chronic intractable pain with multiple pain generators including spondylosis and degenerative disk disease. 2. Osteoarthritis of multiple joints including knees and morbid obesity. 3. Chronic obstructive pulmonary disease with supplemental oxygen. 4. Polycythemia vera. 5. 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 6. Depression. 7. Management of opioid medications under terms of written agreement. We reviewed the fact that opiate medications are being used to provide analgesia adequate to support activities of daily living, not attempting to achieve a specific pain score on the 0-10 Visual Analog Scale. The current opiate medications are providing sufficient analgesia to allow the patient to participate in activities of daily living. The patient is not exhibiting any aberrant behavior suggestive of drug diversion. The patient is not having any adverse reactions to medications. The patient is not suffering from daytime somnolence or mental acuity changes. The patient is managing opiate-induced constipation with appropriate lyam-ddi-uqfskvb agents and dietary considerations. The patient was counseled on concern for caution with operating a motor vehicle while using opiate medications. PLAN: 1. We discussed treatment options with the patient today. The patient feels like his medications are beneficial in controlling most of his pain. We will have Dr. Navdeep Maguire send these electronically for hydrocodone 10/325, #90 for 3 months as well as his gabapentin 800 mg, #120 with 2 additional refills. 2. The patient is explained that he is becoming more depressed. He is having [facility] [address] [place] [address] PAIN MANAGEMENT CONSULTATION Name: RACHID DIAMOND Room #: REG [facility].#: [id number] Admission: 12/08/19 Attend Phys: Jael Gutierrez Discharge: Date of : 59 Report #: [id number] significant issues with his son and a daughter who is homeless. He has his grandson living with him currently, though he is helpful around the house, it is a depressing situation for him. We discussed starting him on Cymbalta 30 mg explain this is an antidepressant that will also help with his neuropathy and leg pain starting at 1 a day in the morning. If this is not beneficial in controlling his pain in the next month then we will increase it to 60 mg. We will send a script electronically for #30 with 2 additional refills. The patient encouraged to call us if he is having significant side effects. We will then rotate this medicine to Remeron and take it at bedtime. 3. The patient verbalizes understanding. The patient is seen today with Dr. Navdeep Maguire who is agreeable with the plan of care and collaborated. <ELECTRONICALLY SIGNED> By: Jael Gutierrez 12/08/19 1506 [id number] Jael gaxiola
== END ==
LOC: PAIN 06:56
DX: M47.816 Spondylosis without myelopathy or radiculopathy, lumbar region (principal); G89.4 Chronic pain syndrome; M17.0 Bilateral primary osteoarthritis of knee; D45 Polycythemia vera; F32.9 Major depressive disorder, single episode, unspecified; Z79.891 Long term (current) use of opiate analgesic

== ENCOUNTER → 2020-03-08 | Outpatient (CLI) | payer OTHER ==
[~2020-03-08] VITALS: Ht 177.8 cm; Wt 120.5 kg
[~2020-03-08] MED LIST changes: +CYMBALTA60 MG PO
[2020-03-08 08:56] VITALS: BP 136/73
--- NOTE | 2020-03-08 09:20 | NUR ---
Pain Clinic Assessment: 1. History of Osteoarthritis: BACK SCOLIOSIS History of Rheumatoid Arthritis: YES PER PT 2. Height: 5 ft. 10 in. 177.8 cm. Weight: 265.6 lb. oz. 120.476 kg. Patient's BMI: 38.1 3. Vital Signs: BP: 136/73 Pulse: 93 Resp: 20 Temp: 02 Sat: 94 ECG Mon: 4. Pain Intensity: 7 5. Fall Risk: Dizziness: N Needs help standing or walking: N Fallen in the last 3 months: N Fall risk comments: 6. Patient on Blood Thinner: None 7. History of Hypertension: Y 8. Opioid Therapy greater than 6 weeks: Y Opiate Contract Signed: 12/10/17 9. Risk Assessment Tool Provided: HIGH RISK-14 10. Functional Assessment Tool: 11. Recreational Drug Use: Past greater than 3 mos Drug Type: Tobacco Use: Current Every Day Smoker Tobacco Type: Cigarettes Amount or Packs/day: 2-3 How Many Years: 45 Alcohol Use: Past use Frequency: Quant:
--- NOTE | 2020-03-13 07:35 | HPC ---
[facility] [place] [address] PAIN MANAGEMENT CONSULTATION Name: RACHID DIAMOND Room #: REG SAJAN Torres.#: [id number] Admission: 03/08/20 Attend Phys: Navdeep Maguire MD Discharge: Date of : 59 Report #: [id number] THIS REPORT FOR: cc: Renny Weston MD, Kirk D. MD Hocker, Amanda RUMPER ~ CC: Navdeep Maguire MD DATE OF SERVICE: 03/08/2020 CHIEF COMPLAINT: Osteoarthritis, lumbar spondylosis and depression. HISTORY OF PRESENT ILLNESS: This is a very pleasant 64-year-old gentleman who returns to the pain clinic today for refill of his medications. Today, he is reporting a pain score of 7/10. He feels that the medications are very helpful in controlling his low back and left hip pain. Today, he is characterizing his pain as a constant ache, worse with walking and standing, but he feels that the medications as well as sitting are beneficial. He denies problems with constipation or daytime somnolence as a result of his opioid medications. The patient continues to have some family issues that have continued to cause him stress and making him feel depressed. He reports his grandson is still living with him, though he is not of any benefit in helping with things around the house. He still continues to have issues with his daughter and son as well. At her last visit, we did start him on Cymbalta at 30 mg. The patient is wondering if he may increase this medication slightly today to see if it will be more beneficial in helping with his depression. ALLERGIES: BENADRYL, PENICILLIN and METHOCARBAMOL. CURRENT LIST OF MEDICATIONS: Hydrocodone 10/325 p.r.n., Cymbalta 30 mg daily, gabapentin 800 mg 4 times a day, diltiazem 240 mg daily, Lasix 40 mg daily, metformin 500 mg daily, aspirin, folic acid, nitro p.r.n. and Hydrea daily. PQRS: 1. He has osteoarthritis in multiple joints as well as rheumatoid arthritis per the patient. 2. Height is 5 feet 10 inches, weight is 265, BMI is 38. 3. Vital signs; 136/73, pulse is 93, respirations 20, oxygen sat is 94%. 4. Pain score is 7/10. Fall risk. Denies dizziness, does not need help walking or standing, has not fallen in the last 3 months. 5. The patient is not on any blood thinners, but does take medicine for hypertension. 6. Opioid therapy is greater than 6 weeks; therefore, an opioid signed contract is on the chart. Risk assessment tool is high. Functional assessment is 41/70. 7. Recreational drug use in the past. He currently smokes 2-3 packs of [facility] [address] [place] [address] PAIN MANAGEMENT CONSULTATION Name: RACHID DIAMOND Room #: REG ISABELLARajat Wiseman#: [id number] Admission: 03/08/20 Attend Phys: Navdeep Maguire MD Discharge: Date of : 59 Report #: [id number] cigarettes a day and does not drink alcohol. According to the prescription monitoring system, the patient is filling appropriately for his medications, filling them in a timely fashion. He is due to fill those medicines today according to the [facility] guidelines, his morphine milliequivalent is 30 MMEs per day. At his next visit, we will check a random drug screen. His last one was appropriate. We attempted to do these on a yearly basis. PHYSICAL EXAMINATION: GENERAL: This is a well-developed, obese 64-year-old gentleman who appears his stated age. He is slightly depressed in affect today. He is placing his current pain score at 7/10 today. HEENT: Normocephalic, atraumatic. Extraocular eye muscles are intact. He is wearing a mask. LUNGS: Diminished in his shortness of breath with exertion without his oxygen cannula today. Does wear this at home. MUSCULOSKELETAL: Pain is located in the lumbosacral region of his back that radiates into his bilateral hips with neuropathy in his bilateral feet. There is 1+ edema in his lower extremities today. He has an antalgic gait. His lower extremity strength judged to be 5/5 in all major muscle groups, but he is deconditioned. He does move from the standing to sitting from a seated position using the armrests. We reviewed the fact that opiate medications are being used to provide analgesia adequate to support activities of daily living, not attempting to achieve a specific pain score on the 0-10 Visual Analog Scale. The current opiate medications are providing sufficient analgesia to allow the patient to participate in activities of daily living. The patient is not exhibiting any aberrant behavior suggestive of drug diversion. The patient is not having any adverse reactions to medications. The patient is not suffering from daytime somnolence or mental acuity changes. The patient is managing opiate-induced constipation with appropriate fdxi-ctm-ccqgfhx agents and dietary considerations. The patient was counseled on concern for caution with operating a motor vehicle while using opiate medications. A physical exam was performed and the patient's functional status was evaluated. All patients with back pain were advised against the bed rest greater than 4 days and were advised to return to normal activities. Pain score assessment was noted and the treatment plan was reviewed with the patient. All current medications, both prescribed and OTC were reviewed and reconciled on the electronic medical record. Tobacco screening was accomplished and smoking cessation was advised when indicated. BMI was noted and diet/exercise modification was recommended for all patients following outside normal parameters. [facility] [address] [place] [address] PAIN MANAGEMENT CONSULTATION Name: RACHID DIAMOND Room #: REG [facility].#: [id number] Admission: 03/08/20 Attend Phys: Navdeep Maguire MD Discharge: Date of : 59 Report #: [id number] I reviewed with the patient today their responsibilities to safeguard prescription medications, reviewed their responsibility to utilize medications only as prescribed by the physician. They are to seek and receive pain medications only from 1 physician group ( [facility]). They are to use 1 pharmacy and keep the clinic informed if they change pharmacies. Their responsibilities include making followup visits in a timely fashion and to avoid abrupt discontinuation of medication usage. Their responsibilities further include bringing their medications (bottles from the pharmacy with residual pills) to the visit for possible confirmation of pill counts and the patient understands it is their responsibility to submit to random drug screens to ensure both that the medications prescribed are present, and that no other controlled substances are present. All prescriptions provided today were generated electronically. IMPRESSION: 1. Chronic intractable pain with multiple pain generators including spondylosis and degenerative disk disease. 2. Osteoarthritis involving multiple joints. 3. Morbid obesity. 4. Chronic obstructive pulmonary disease with supplemental oxygen. 5. Polycythemia vera. 6. Depression. 7. 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 8. Management of opioid medications under terms of written opioid agreement. PLAN: 1. We discussed treatment options with the patient today. We had started him on Cymbalta at his last appointment as a trial to see if this was beneficial in helping with some of his depression that he is experiencing. He is requesting an increase. He feels that it is helpful, but is still depressed. Today, we will send electronically 60 mg of Cymbalta for one tablet a day, #30 with 2 additional refills. 2. We will send gabapentin 800 mg, #120 with 2 additional refills. 3. We will help Dr. Navdeep Maguire to send his hydrocodone 10/325, #90 for today 4-week and 8-week release. Dr. Navdeep Maguire collaborated care. The patient will return in 3 months. At that time, we will repeat a random drug screen on this patient. <ELECTRONICALLY SIGNED> By: Jael Gutierrez 03/13/20 0735 [id number] Jael Gutierrez /tisha
== END ==
LOC: PAIN 06:44
PROVIDERS: ATTEND Anesthesiology Pain Medicine
DX: M51.36 Other intervertebral disc degeneration, lumbar region (principal); M47.816 Spondylosis without myelopathy or radiculopathy, lumbar region; F32.9 Major depressive disorder, single episode, unspecified; D45 Polycythemia vera; M06.9 Rheumatoid arthritis, unspecified; Z88.0 Allergy status to penicillin; Z88.8 Allergy status to other drugs, medicaments and biological substances; Z79.891 Long term (current) use of opiate analgesic

== ENCOUNTER → 2020-06-07 | Outpatient (CLI) | payer OTHER ==
[~2020-06-07] VITALS: Ht 177.8 cm; Wt 123.1 kg
--- NOTE | ~2020-06-07 | HPC ---
[facility] [place] [address] PAIN MANAGEMENT CONSULTATION Name: RACHID DIAMOND Room #: REG SAJAN BowersMaryTootie.#: [id number] Admission: 06/07/20 Attend Phys: Navdeep Maguire MD Discharge: Date of : 59 Report #: [id number] THIS REPORT FOR: cc: Renny Weston MD, Kirk D. MD Morgan, Richard L. MD ~ CC: Renny Maguire DATE OF SERVICE: 06/07/2020 Followup visit for chronic osteoarthritis and lumbar spondylosis. The patient returns to pain clinic today for 3-month followup. I provided medications for him under terms of a written opioid agreement. He takes hydrocodone 10/325 one tablet 3 times daily nearly on schedule. His medications were provided at 4 and 8 weeks as well and he has been on time with all of his prescriptions. I reviewed the prescription drug monitoring program information from [facility]. There are no unexpected entries. I am the only provider. The pain medication helps his pain by about 50%, but he nonetheless scores his pain about a 7. He denies any side effects. He carefully safeguards his medications as outlined in his opioid agreement, which we reviewed today. Listening to him is a bit like a country and a Western song. He is really a great ghulam and I enjoyed visiting with him during our visit. He lives a difficult life. He gets by on less than $900 a month. In order to do so, his ex- is living with him. He had his grandson living with him for a period of time, but he has asked him to move out when his girlfriend came from [place] and he did not want to have them both in the house. He is able to get around in his 2006 [employer] F-150 pickup. It is hopeful that nothing will break based upon his low social security. I did discuss the fact that he continues to smoke 2 packs of cigarettes a day! How he does this on such a little money is concerning. It obviously is a high priority for him. He is not able to do a lot, but he has been getting out some around the house and doing some yard work when it is cool enough. With COPD due to smoking and his chronic pain issues, it has been very difficult for him to get out during the month of April with a high humidity. Hopefully, in the spring, he will be able to get outside more. He is unable to take any nonsteroidal anti-inflammatory drugs both due to coronary artery disease and also a history of a left nephrectomy. We discussed the importance again remaining off of those things. He is alcoholic and has not consumed alcohol for many years. [facility] [address] [place] [address] PAIN MANAGEMENT CONSULTATION Name: RACHID DIAMOND CITLALI Room #: REG SAJAN Wiseman#: [id number] Admission: 06/07/20 Attend Phys: Navdeep Maguire MD Discharge: Date of : 59 Report #: [id number] PQRS review is positive for diffuse spondylosis of the spine and scoliosis. Most of his pain is across his low back. He remains obese with a BMI of 38.9. Blood pressure 146/86, heart rate 93, respirations 14, O2 sat 94. Marked tenderness is noted along the cervical, thoracic and lumbar spine. There is restricted range of motion. Pain intensity 5/10. He has not fallen in the last 3 months. He is on no blood thinners, but his hypertension is noted, continues to see Dr. Weston for treatment. He is on an opioid agreement dating back many years, most recently signed in 2018. Risk is a 4/7 mostly due to his alcoholism in earlier years, which he is now unable to conquer. He is grateful for his ability to stay off of alcohol. His functional assessment score is 40/70. IMPRESSION: 1. Chronic intractable pain related to multiple joint arthritis and spondylosis. 2. Management of high risk medications under opioid agreement. 3. Morbid obesity. 4. Chronic obstructive pulmonary disease with continued use of tobacco at high levels. Counseled throughout today's visit. 5. Depression. He is doing pretty well with Cymbalta. I will continue him on that as well. 6. History of kidney resection due to Wilms' tumor with solitary kidney. PLAN: I renewed his medications for him today under terms of our agreement. I have reviewed all medications on the prescription drug monitoring program information and there are no unexpected entries. Followup visit planned in 3 months. By: [id number] Navdeep Maguire MD /nt
[2020-06-07 09:10] VITALS: BP 146/86
--- NOTE | 2020-06-07 09:25 | NUR ---
Pain Clinic Assessment: 1. History of Osteoarthritis: BACK SCOLIOSIS History of Rheumatoid Arthritis: YES PER PT 2. Height: 5 ft. 10 in. 177.8 cm. Weight: 271.4 lb. oz. 123.107 kg. Patient's BMI: 38.9 3. Vital Signs: BP: 146/86 Pulse: 93 Resp: 14 Temp: 02 Sat: 94 ECG Mon: 4. Pain Intensity: 5 5. Fall Risk: Dizziness: N Needs help standing or walking: N Fallen in the last 3 months: N Fall risk comments: 6. Patient on Blood Thinner: None 7. History of Hypertension: Y 8. Opioid Therapy greater than 6 weeks: Y Opiate Contract Signed: 12/10/17 9. Risk Assessment Tool Provided: MODERATE 01/02 10. Functional Assessment Tool: 11. Recreational Drug Use: Past greater than 3 mos Drug Type: Tobacco Use: Current Every Day Smoker Tobacco Type: Cigarettes Amount or Packs/day: 2 PACKS/DAY How Many Years: Alcohol Use: Past use Frequency: Quant:
== END ==
LOC: PAIN 06:40
PROVIDERS: ATTEND Anesthesiology Pain Medicine
DX: M47.816 Spondylosis without myelopathy or radiculopathy, lumbar region (principal); M19.90 Unspecified osteoarthritis, unspecified site; E66.01 Morbid (severe) obesity due to excess calories; J44.9 Chronic obstructive pulmonary disease, unspecified; F32.9 Major depressive disorder, single episode, unspecified; F11.20 Opioid dependence, uncomplicated; Z85.528 Personal history of other malignant neoplasm of kidney; Z79.899 Other long term (current) drug therapy

== ENCOUNTER → 2020-09-05 | Outpatient (CLI) | payer OTHER ==
[~2020-09-05] VITALS: Ht 177.8 cm; Wt 128.0 kg
[2020-09-05 09:21] VITALS: BP 145/84
--- NOTE | 2020-09-05 09:42 | NUR ---
Pain Clinic Assessment: 1. History of Osteoarthritis: BACK SCOLIOSIS History of Rheumatoid Arthritis: YES PER PT 2. Height: 5 ft. 10 in. 177.8 cm. Weight: 282.2 lb. oz. 128.005 kg. Patient's BMI: 40.5 3. Vital Signs: BP: 145/84 Pulse: 75 Resp: 24 Temp: 02 Sat: 94 ECG Mon: 4. Pain Intensity: 5 5. Fall Risk: Dizziness: N Needs help standing or walking: N Fallen in the last 3 months: N Fall risk comments: 6. Patient on Blood Thinner: None 7. History of Hypertension: Y 8. Opioid Therapy greater than 6 weeks: Y Opiate Contract Signed: 12/10/17 9. Risk Assessment Tool Provided: MODERATE 01/02 10. Functional Assessment Tool: 11. Recreational Drug Use: Past greater than 3 mos Drug Type: Tobacco Use: Current Every Day Smoker Tobacco Type: Amount or Packs/day: 2.5 How Many Years: Alcohol Use: Past use Frequency: Quant:
--- NOTE | 2020-09-05 15:14 | HPC ---
[facility] [place] [address] PAIN MANAGEMENT CONSULTATION Name: RACHID DIAMOND Room #: REG SAJAN BowersMaryTootieMary#: [id number] Admission: 09/05/20 Attend Phys: Jael Gutierrez Discharge: Date of : 59 Report #: [id number] THIS REPORT FOR: cc: Nasim Gutierrez MD, Austin T. MD Hocker,Jael ROMERO ~ DATE OF SERVICE: 09/05/2020 CHIEF COMPLAINT: Chronic osteoarthritis and lumbar spondylosis. HISTORY OF PRESENT ILLNESS: The patient returns to the pain clinic today for a renewal of his opioid medications. Today, he is reporting a pain score of 5-6, this is his average pain that he reports in his lower back as well as left hip. He states it is a sharp, twisting pain that is worse with prolonged standing and walking. Overall, he believes his medication as well as sitting has been beneficial. He denies problems with constipation. Today, the patient is reporting some swelling in his lower extremities, especially in his left foot. He believes it has something to do with his Cardizem, so he has stopped that. He is also no longer taking his Cymbalta. He is unsure if that caused any swelling. He believes that he is not as depressed as he was in the past, so therefore he has stopped that medication. He reports going to see his kidney doctor in a couple of weeks and is going to discuss his edema in his lower extremities. ALLERGIES: BENADRYL, PENICILLIN, METHOCARBAMOL. CURRENT MEDICATIONS: Gabapentin 800 mg q.i.d., hydrocodone 10/325 q. 8 hours, furosemide, metformin, aspirin, folic acid, albuterol and Hydrea. PQRS: 1. He has osteoarthritic changes in his back and knees as well as scoliosis. He reports that he has rheumatoid arthritis as well. 2. Height is 5 feet 10 inches, weight is 284, BMI is 40. 3. Vital signs 145/84, pulse is 75, respirations 24, oxygen sat is 94. 4. Pain score is 5/10. 5. Denies dizziness, does not need help walking or standing, has not fallen in the last 3 months. 6. The patient is not on any blood thinners, but does take medicine for hypertension. 7. Opioid therapy is greater than 6 weeks; therefore, an opioid signed contract is on the chart. Risk assessment is moderate. Functional assessment is 40/70. 8. Recreational drug use in the past. He is a current smoker of 2.5 packs of cigarettes a day and does not drink alcohol. Previously, he was an alcoholic and has not drank for 22 years. 9. According to the prescription monitoring system, [place] [address] PAIN MANAGEMENT CONSULTATION Name: DARARACHIDJESSICA GODWIN Room #: REG CL Bowen#: [id number] Admission: 09/05/20 Attend Phys: Jael Gutierrez Discharge: Date of : 59 Report #: [id number] appropriately, filling in a timely fashion with Dr. Maguire. Dr. Miranda will send his medications today, he has 30 morphine mEq per day according to the CDC guidelines. PHYSICAL EXAMINATION: GENERAL: This is alert and orientated 65-year-old who is a good historian, rating his pain score today at 5/10. HEENT: Normocephalic, atraumatic. Extraocular eye muscles are intact. Mucous membranes are moist. He is wearing a mask. LUNGS: Diminished and shortness of breath with exertion. MUSCULOSKELETAL: Pain in his lumbosacral region. He is positive for scoliosis. He walks with an antalgic gait. His lower extremity strength is symmetrical at 5/5 and is deconditioned. He does have 2+ edema in his left lower extremity and foot today. No edema present in his right lower extremity. He uses armrest to move from the seated to standing position. We reviewed the fact that opiate medications are being used to provide analgesia adequate to support activities of daily living, not attempting to achieve a specific pain score on the 0-10 Visual Analog Scale. The current opiate medications are providing sufficient analgesia to allow the patient to participate in activities of daily living. The patient is not exhibiting any aberrant behavior suggestive of drug diversion. The patient is not having any adverse reactions to medications. The patient is not suffering from daytime somnolence or mental acuity changes. The patient is managing opiate-induced constipation with appropriate xqjx-akt-xvmkdax agents and dietary considerations. The patient was counseled on concern for caution with operating a motor vehicle while using opiate medications. IMPRESSION: 1. Chronic intractable pain related to multiple joint arthritis and spondylosis. 2. Morbid obesity. 3. Chronic obstructive pulmonary disease, continues tobacco use. Counseling given. 4. 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 5. Depression. 6. Management of high risk medications under opioid agreement. PLAN: 1. We discussed treatment options with the patient today. We encouraged him to decrease his smoking. He was very short of breath when he did come to the clinic today. The patient reports he did try and he will attempt to decrease again. 2. We discussed his lower extremity edema, he has seen his screedman/laborer on the . I encouraged him to take his blood pressure and explained to them that he is no longer taking his Cardizem and has stopped Cymbalta, which may have [facility] [address] [place] [address] PAIN MANAGEMENT CONSULTATION Name: RACHID DIAMOND CITLALI Room #: REG SAJAN Wiseman#: [id number] Admission: 09/05/20 Attend Phys: Jael Gutierrez Discharge: Date of : 59 Report #: [id number] attributed to swelling slightly, though he has stopped taking this in the past few weeks. The patient does continue Lasix varying dose schedule. 3. We will have Dr. Miranda send his hydrocodone to the pharmacy today as he is covering for Dr. Maguire and collaborating care. These will be sent for 3 months. 4. If his screedman/laborer feels that he is okay to start his Cymbalta, we may lower the dose to 30 mg and see if that is beneficial in helping with some of his depression that he is experiencing with his family issues at home, but if the patient feels he is stable without it, we will discontinue this medicine. The patient is instructed to call. <ELECTRONICALLY SIGNED> By: Jael Gutierrez 09/05/20 1514 [id number] Jael Gutierrez /nt
== END ==
LOC: PAIN 06:47
PROVIDERS: ATTEND Clinical Nurse Specialist Adult Health
DX: G89.4 Chronic pain syndrome (principal); M19.90 Unspecified osteoarthritis, unspecified site; E66.01 Morbid (severe) obesity due to excess calories; J44.9 Chronic obstructive pulmonary disease, unspecified; F17.200 Nicotine dependence, unspecified, uncomplicated; F32.9 Major depressive disorder, single episode, unspecified; Z79.891 Long term (current) use of opiate analgesic

== ENCOUNTER → 2020-11-05 | Outpatient (CLI) | payer OTHER ==
--- NOTE | 2020-11-06 09:54 | HPC ---
[facility] [address] [place] [address] PAIN MANAGEMENT CONSULTATION Name: DEVAN DIAMOND CITLALI Room #: REG [facility] Melissa.#: [id number] Admission: 11/05/20 Attend Phys: Jael Gutierrez Discharge: Date of : 59 Report #: [id number] THIS REPORT FOR: cc: Nasim Gutierrez MD, Austin T. MD Hocker,Jael ROMERO ~ DATE OF SERVICE: 11/05/2020 CHIEF COMPLAINT: Chronic osteoarthritis and lumbar spondylosis. HISTORY OF PRESENT ILLNESS: This is a telemedicine appointment that I am speaking with the patient from 1443 to 1456 via the telephone that he has consented for. The patient returns for followup for this Telemed appointment for his medications. He reports his pain score is 10/10 currently. He reports it is still high because he did not take his 11:00 pain pill because he was sleeping and now since he has awoken his pain is quite elevated. He states that his pain is mostly located in his low back, left hip. It is a sharp, aching sensation, especially when he walks and stands. Usually the medication as well as sitting down relieves his pain quite significantly. He denies any significant constipation or daytime somnolence as a result of his medications. Devan reports that he continues to try and decrease smoking. He is down from 16 packs a week to 10 packs a week. He continues to work on decreasing this even further. He does report he is going to see Dr. Guillen, his primary care doctor tomorrow and discuss his Lasix. He continues to have swelling issues in his lower extremities per his report taking Lasix 40 mg every day. He is unable to tolerate 80 mg due to significant leg cramping when he takes a higher dose. He would like to split the dose in half, but needs to have approval from his physician. ALLERGIES: BENADRYL, PENICILLIN, METHOCARBAMOL. CURRENT LIST OF MEDICATIONS: Gabapentin 800 mg q.i.d., hydrocodone 10/325 t.i.d., diltiazem, Lasix, metformin, aspirin, folic acid, albuterol, Nitro PQRS: 1. He has significant osteoarthritis in his lumbar spine, spondylosis and has a diagnosis of scoliosis. 2. Height, weight and vital signs are not done due to a telemedicine appointment. 3. Pain score is 10/10. 4. Fall risk. Denies dizziness, does not need assistance with ambulation. Has not fallen in the last 3 months. 5. The patient is not on any blood thinners, but does take [place] [address] PAIN MANAGEMENT CONSULTATION Name: DEVAN DIAMOND CITLALI [id number] Admission: 11/05/20 Attend Phys: Jael Gutierrez Discharge: Date of : 59 Report #: [id number] 6. Opioid therapy is greater than 6 weeks; therefore, an opioid signed contract is on the chart. Risk assessment is moderate. Functional assessment is 40/70. 7. Recreational drug use in the past. He is a current smoker and does not drink alcohol. According to the prescription monitoring system, the patient is filling appropriately, due to fill his medications today, morphine milliequivalent is 30 MME per day. PHYSICAL EXAMINATION: Deferred. REVIEW OF SYSTEMS: He is answering my questions appropriately. He is alert and orientated. No difficulty breathing noted currently on the phone. He reports edema in his lower extremities and tenderness in his spine. IMPRESSION: 1. Chronic intractable pain related to multiple joint arthritis and spondylosis. 2. Management of high risk medications under written opioid agreement. 3. Morbid obesity. 4. Chronic obstructive pulmonary disease, continues to smoke, but trying to decrease. 5. 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 PLAN: 1. We discussed treatment options with the patient today. The patient does have one prescription at the pharmacy left from his last visit, we did call the pharmacy to verify this and instructed them to fill it; therefore, we will have prescriptions sent to be picked up on 12/03, 12/31, and 01/28 of hydrocodone 10/325, #90. 2. I did instruct the patient to call for appointment then in early February. 3. We did discuss his Cymbalta at his last visit. He reported that his clinical study manager had instructed him to stop that medication for a time and then they were going to redraw his kidney functions. Per his report, the clinical study manager wishes to keep him off Cymbalta at this time. He reports that his mood is stabilized presently. He feels he does not need this antidepressant at this time. 4. We did discuss his Lasix and encouraged him to discuss this with his primary care doctor tomorrow at his visit. He reports he has significant swelling, but unable to tolerate 80 mg of Lasix per day due to increasing leg cramps. He does not take any supplemental potassium that may be an option for him to discuss that with his primary care doctor. [facility] [address] [place] [address] PAIN MANAGEMENT CONSULTATION Name: DEVAN DIAMOND Room #: REG SAJAN Bowen#: [id number] Admission: 11/05/20 Attend Phys: Jael Gutierrez Discharge: Date of : 59 Report #: [id number] 5. This patient's case was discussed with Dr. Maguire who collaborated this Telemed appointment. <ELECTRONICALLY SIGNED> By: Jael Gutierrez 11/06/20 0954 1513 1937 Jael Gutierrez /nt
== END ==
LOC: PAIN 07:09 → TELEPC 07:09 → PAIN 14:26
PROVIDERS: ATTEND Clinical Nurse Specialist Adult Health
DX: M47.816 Spondylosis without myelopathy or radiculopathy, lumbar region (principal); G89.29 Other chronic pain; E66.01 Morbid (severe) obesity due to excess calories; J44.9 Chronic obstructive pulmonary disease, unspecified; F11.20 Opioid dependence, uncomplicated

== ENCOUNTER → 2021-01-31 | Outpatient (CLI) | payer OTHER ==
[~2021-01-31] VITALS: Ht 177.8 cm; Wt 127.9 kg
[2021-01-31 09:04] VITALS: BP 136/82
--- NOTE | 2021-01-31 09:15 | NUR ---
Pain Clinic Assessment: 1. History of Osteoarthritis: BACK SCOLIOSIS History of Rheumatoid Arthritis: YES PER PT 2. Height: 5 ft. 10 in. 177.8 cm. Weight: 282.0 lb. oz. 127.915 kg. Patient's BMI: 40.5 3. Vital Signs: BP: 136/82 Pulse: 82 Resp: 20 Temp: 02 Sat: 92 ECG Mon: 4. Pain Intensity: 6 5. Fall Risk: Dizziness: N Needs help standing or walking: N Fallen in the last 3 months: N Fall risk comments: 6. Patient on Blood Thinner: None 7. History of Hypertension: Y 8. Opioid Therapy greater than 6 weeks: Y Opiate Contract Signed: 12/10/17 9. Risk Assessment Tool Provided: MODERATE 01/02 10. Functional Assessment Tool: 11. Recreational Drug Use: Past greater than 3 mos Drug Type: MARIJUANA Tobacco Use: Current Every Day Smoker Tobacco Type: Cigarettes Amount or Packs/day: 2 PACKS How Many Years: 47 Alcohol Use: Past use Frequency: Quant:
== END ==
LOC: PAIN 07:55
PROVIDERS: ATTEND Clinical Nurse Specialist Adult Health
DX: M47.816 Spondylosis without myelopathy or radiculopathy, lumbar region (principal); E66.01 Morbid (severe) obesity due to excess calories; J44.9 Chronic obstructive pulmonary disease, unspecified; F32.9 Major depressive disorder, single episode, unspecified; F11.20 Opioid dependence, uncomplicated; Z88.8 Allergy status to other drugs, medicaments and biological substances; Z79.899 Other long term (current) drug therapy

== ENCOUNTER → 2021-06-06 | Outpatient (CLI) | payer OTHER ==
[~2021-06-06] VITALS: Ht 177.8 cm; Wt 125.4 kg
[~2021-06-06] MED LIST changes: +EFFER-K 10 MEQ10 ME1
[2021-06-06 09:07] VITALS: BP 138/74
--- NOTE | 2021-06-06 09:21 | NUR ---
Pain Clinic Assessment: 1. History of Osteoarthritis: BACK SCOLIOSIS History of Rheumatoid Arthritis: YES PER PT 2. Height: 5 ft. 10 in. 177.8 cm. Weight: 276.4 lb. oz. 125.375 kg. Patient's BMI: 39.7 3. Vital Signs: BP: 138/74 Pulse: 75 Resp: 16 Temp: 02 Sat: 91 ECG Mon: 4. Pain Intensity: 7 5. Fall Risk: Dizziness: N Needs help standing or walking: N Fallen in the last 3 months: Y Fall risk comments: 6. Patient on Blood Thinner: None 7. History of Hypertension: Y 8. Opioid Therapy greater than 6 weeks: Y Opiate Contract Signed: 12/10/17 9. Risk Assessment Tool Provided: MODERATE 01/02 10. Functional Assessment Tool: 11. Recreational Drug Use: Current within past 3 mos Drug Type: THC Tobacco Use: Current Every Day Smoker Tobacco Type: Cigarettes Amount or Packs/day: 2 1/2 PKS How Many Years: Alcohol Use: Past use Frequency: Quant:
[2021-06-06 13:17] LABS: ABSOLUTE NEUTROPHILS 2.8 thou/uL (1.4-8.2); BASOPHILS 0.5 % (0.0-2.0); EOSINOPHILS 1.1 % (0.0-3.0); HEMATOCRIT 44.6 % (42.0-52.0); HEMOGLOBIN 14.1 gm/dL (14.0-18.0); LYMPHOCYTES 26.2 % (24.0-44.0); MCH 39.3 pg (26.0-34.0); MCHC 31.6 g/dL (28.0-37.0); MCV 124.3 fL (80.0-100.0); MONOCYTES 7.5 % (1.0-8.0); PLATELET COUNT 230 thou/uL (150-400); POLYS 64.7 % (36.0-66.0); RBC 3.59 mil/uL (4.50-6.00); RDW 15.8 % (10.5-14.5); WBC 4.3 thou/uL (4.0-11.0)
[2021-06-06 13:31] LABS: ALBUMIN 3.5 g/dL (3.4-5.0); CALCIUM 8.8 mg/dL (8.5-10.1); CREATININE 0.9 mg/dL (0.7-1.3); POTASSIUM 4.8 mmol/L (3.5-5.1); TOTAL BILIRUBIN 0.9 mg/dL (0.2-1.0); TOTAL PROTEIN 6.2 g/dL (6.4-8.2)
[2021-06-06 15:01] LABS: MACROCYTES 2+
== END ==
LOC: PAIN 08:08
PROVIDERS: ATTEND Clinical Nurse Specialist Adult Health
DX: G89.4 Chronic pain syndrome (principal); M19.90 Unspecified osteoarthritis, unspecified site; E66.01 Morbid (severe) obesity due to excess calories; J44.9 Chronic obstructive pulmonary disease, unspecified; D45 Polycythemia vera; F32.9 Major depressive disorder, single episode, unspecified; Z79.891 Long term (current) use of opiate analgesic; Z79.899 Other long term (current) drug therapy

== ENCOUNTER 2021-08-24 00:47 | Inpatient (IN) | payer OTHER ==
[~2021-08-24] VITALS: Ht 152.4 cm; Wt 132.3 kg
[2021-08-24 00:53] VITALS: BP 131/76
[2021-08-24 02:08] LABS: ABSOLUTE NEUTROPHILS 4.9 thou/uL (1.4-8.2); EOSINOPHILS 1.1 % (0.0-3.0); HEMATOCRIT 46.7 % (42.0-52.0); HEMOGLOBIN 13.9 gm/dL (14.0-18.0); MCH 32.7 pg (26.0-34.0); MCHC 29.8 g/dL (28.0-37.0); MCV 109.7 fL (80.0-100.0); MONOCYTES 8.7 % (1.0-8.0); PLATELET COUNT 313 thou/uL (150-400); POLYS 57.2 % (36.0-66.0); RBC 4.25 mil/uL (4.50-6.00); RDW 21.7 % (10.5-14.5); WBC 8.5 thou/uL (4.0-11.0)
[2021-08-24 02:15] LABS: CALCIUM 8.7 mg/dL (8.5-10.1); CREATININE 1.1 mg/dL (0.7-1.3); POTASSIUM 3.6 mmol/L (3.5-5.1)
[2021-08-24 02:20] LABS: ALBUMIN 3.6 g/dL (3.4-5.0); TOTAL BILIRUBIN 0.9 mg/dL (0.2-1.0); TOTAL PROTEIN 6.8 g/dL (6.4-8.2)
[2021-08-24 05:40] VITALS: BP 124/72
[2021-08-24 05:49] VITALS: BP 125/60
[2021-08-24 06:00] VITALS: BP 119/53
--- NOTE | 2021-08-24 06:56 | NUR ---
ADMISSION: PT ARRIVED ON UNIT AT 0600 FROM THE ED. PT ALERT & ORIENTED X 4. CURRENTLY ON 3L O2 NC. VSS AFEBRILE. NO C/O OF CHEST PAIN. BLE EDEMA 3+. SKIN C/D/I. PT IS UP WITH SBA. HAS A HX OF FALLING. CARE PLAN SET AND INTERVENTIONS ACTIVATED. WILL CONTINUE TO MONITOR.
[2021-08-24 06:59] VITALS: BP 121/74
[2021-08-24] MEDS ORDERED: IRBESARTAN75 MG PO (10:22)
[2021-08-24 12:49] VITALS: BP 121/74
--- NOTE | 2021-08-24 19:42 | NUR ---
RN ASSUMED PT'S CARE AT 0700-1600PM, PT IS A&OX4, PT 'S HR AND A-FIB HAVE CONTROLLED BY IV AND PO DILTIAZEM , PT'S VS ARE STABLE, PT FELL BETTER, PT REQUEST TO GO HOME WITHOUT DC ORDER, PT HAS SIGNED RELEASE FROM RESPONSIBILITY FOR DISCHARGE, RN HAS NOTIFIED DR, PT'S GLASS TOUGHENING OPERATOR PT TO HOME.
--- NOTE | 2021-08-25 07:33 | HC ---
[facility] [place] [address] [place] [address] CONSULTATION Name: RACHID DIAMOND Room #: 357-P [facility] IN M.R.#: [id number] Admission: 08/24/21 Attend Phys: Erik Oliva MD Discharge: 08/24/21 Date of : 59 Report #: [id number] THIS REPORT FOR: cc: Nasim Gutierrez MD, Austin T. MD Park, Jin S. MD ~ DATE OF SERVICE: 08/24/2021 CARDIOLOGY CONSULTATION INDICATION: Shortness of breath and chest pain. HISTORY OF PRESENT ILLNESS: This is a 66-year-old gentleman with a history of COPD, on home oxygen, diabetes mellitus, hypertension, paroxysmal atrial flutter, diastolic heart failure, Wilms tumor, edema and polycythemia vera. Over the past several days, he has noticed increased shortness of breath, chest discomfort and edema. He reports substernal chest and lateral chest discomfort, occurring at rest. Not related to exertion. He reports compliance with his medications, takes Lasix on an every other day basis. He continues to smoke at least 2 packs of cigarettes per day. He reports no fever, cough, nausea or diarrhea. PAST MEDICAL HISTORY: COPD, on 3 liters of oxygen at home. Wilms tumor with a history of nephrectomy and right lobectomy. Diastolic heart failure. Paroxysmal atrial flutter. Hypertension, diabetes, noncompliance SOCIAL HISTORY: Two-pack smoker per day. ALLERGIES: PENICILLIN, BENADRYL AND METHOCARBAMOL. MEDICATIONS: At home include aspirin 81 mg, metformin and furosemide 80 mg every other day and irbesartan. FAMILY HISTORY: See HPI. REVIEW OF SYSTEMS: A full 10-point review of systems performed. Only the pertinent positives and negatives are described in the HPI. PHYSICAL EXAMINATION: VITAL SIGNS: Blood pressure is 120/70, heart rate is 130 beats per minute. GENERAL APPEARANCE: An overweight male, in no acute distress. HEENT: Normocephalic, atraumatic. Oral mucosa moist. NECK: Supple. LUNGS: Diminished breath sounds bilaterally. CARDIAC: Distant heart sounds S1, S2. ABDOMEN: Protuberant, soft, nontender. [facility] [address] [place] [address] CONSULTATION Name: RACHID DIAMOND CITLALI Room #: 357-P [facility] IN M.R.#: [id number] Admission: 08/24/21 Attend Phys: Erik Oliva MD Discharge: 08/24/21 Date of : 59 Report #: [id number] EXTREMITIES: No cyanosis, 1-2+ lower extremity edema. LABORATORY DATA: Troponin is negative. Creatinine is 1.1, sodium is 134. White count is 8.5, hemoglobin is 13.9. ASSESSMENT AND PLAN: 1. Congestive heart failure, history of diastolic heart failure. May be related to dietary indiscretion in compliance. We will diurese with IV Lasix. Strict inputs and outputs. Needs an echo. 2. Atrial fibrillation, prior history of atrial flutter. We will use Cardizem IV for rate control. Needs long-term anticoagulation. Lovenox for now. 3. Chest pain, initial troponin negative. Given his risk factors, we will need an ischemic evaluation. 4. Chronic obstructive pulmonary disease/tobacco use, continue on oxygen. Complete smoking cessation advised. 5. Diabetes mellitus, as per primary care physician. <ELECTRONICALLY SIGNED> By: Sonny Matt MD 08/25/21 0733 0745 0759 Sonny Matt MD /nt
--- NOTE | 2021-08-27 07:10 | EKG ---
[address] [address] ELECTROCARDIOGRAM REPORT Name: RACHID DIAMOND Room #: 357- DIS IN M.R.#: [id number] Admission: 08/24/21 Attend Phys: Erik Oliva MD Discharge: 08/24/21 Date of : 59 Report #: [id number] [facility] ED Test Date: 2021-08-24 Test Time: 00:58:32 Pat Name: RACHID DIAMOND Department: Room: 357 P Gender: M Paralegals: MANUEL : 1955 Requested By: Maxwell Winston Order Number: [id number] MD: Santana Ceja Measurements Intervals [place] Rate: 156 P: MD: QRS: -61 QRSD: 109 T: 94 QT: 283 QTc: 456 Interpretive Statements Atrial fibrillation Left anterior fascicular block Consider anterior infarct Repolarization abnormality, prob rate related Compared to ECG 03/04/2019 07:35:38 Myocardial infarct finding now present Early repolarization now present Sinus rhythm no longer present Poor R-wave progression no longer present Electronically Signed On 08-27-2021 7:09:44 ONLINE EDITOR by Santana Ceja [email or web address] <ELECTRONICALLY SIGNED> By: Santana Ceja MD, FAC 08/27/21 0709 Santana Ceja MD, [facility] /EPI
== END 2021-08-24 15:30 | disposition left against medical advice (07) | DRG 291 ==
LOC: ER 00:47 → EROBS 05:32 → 3W 05:54
PROVIDERS: Emergency Medicine; ADMIT Hospitalist; ATTEND Hospitalist
DX: I11.0 Hypertensive heart disease with heart failure (principal); I50.31 Acute diastolic (congestive) heart failure; J96.11 Chronic respiratory failure with hypoxia; Z20.822 Contact with and (suspected) exposure to COVID-19; J44.9 Chronic obstructive pulmonary disease, unspecified; Z53.21 Procedure and treatment not carried out due to patient leaving prior to being seen by health care provider; I48.91 Unspecified atrial fibrillation; E11.9 Type 2 diabetes mellitus without complications; F17.210 Nicotine dependence, cigarettes, uncomplicated; Z90.5 Acquired absence of kidney; Z90.49 Acquired absence of other specified parts of digestive tract; Z91.19 Patient's noncompliance with other medical treatment and regimen; Z79.01 Long term (current) use of anticoagulants; Z88.0 Allergy status to penicillin; Z88.8 Allergy status to other drugs, medicaments and biological substances; Z71.6 Tobacco abuse counseling
CPT/HCPCS: 10879

== ENCOUNTER → 2021-09-05 | Outpatient (CLI) | payer OTHER ==
[~2021-09-05] VITALS: Ht 177.8 cm; Wt 128.4 kg
[~2021-09-05] MED LIST changes: +IRBESARTAN75 MG PO
[2021-09-05 09:22] VITALS: BP 107/64
--- NOTE | 2021-09-05 09:28 | NUR ---
Pain Clinic Assessment: 1. History of Osteoarthritis: BACK SCOLIOSIS History of Rheumatoid Arthritis: YES PER PT 2. Height: 5 ft. 10 in. 177.8 cm. Weight: 283.0 lb. oz. 128.368 kg. Patient's BMI: 40.6 3. Vital Signs: BP: 107/64 Pulse: 84 Resp: 16 Temp: 02 Sat: 90 ECG Mon: 4. Pain Intensity: 7 5. Fall Risk: Dizziness: N Needs help standing or walking: N Fallen in the last 3 months: Y Fall risk comments: 6. Patient on Blood Thinner: None 7. History of Hypertension: Y 8. Opioid Therapy greater than 6 weeks: Y Opiate Contract Signed: 12/10/17 9. Risk Assessment Tool Provided: MODERATE 4 10. Functional Assessment Tool: 11. Recreational Drug Use: Never Drug Type: Tobacco Use: Current Every Day Smoker Tobacco Type: Cigarettes Amount or Packs/day: 1-2 packs How Many Years: Alcohol Use: Past use Frequency: Quant:
== END ==
LOC: PAIN 08:26
PROVIDERS: ATTEND Clinical Nurse Specialist Adult Health
DX: M47.816 Spondylosis without myelopathy or radiculopathy, lumbar region (principal); I48.91 Unspecified atrial fibrillation; J18.9 Pneumonia, unspecified organism; I50.9 Heart failure, unspecified; J44.9 Chronic obstructive pulmonary disease, unspecified; R60.1 Generalized edema; D75.1 Secondary polycythemia; Z88.0 Allergy status to penicillin; Z88.8 Allergy status to other drugs, medicaments and biological substances; Z79.82 Long term (current) use of aspirin; Z79.899 Other long term (current) drug therapy

== ENCOUNTER 2021-09-19 11:41 | Inpatient (IN) | payer OTHER ==
[~2021-09-19] VITALS: Ht 177.8 cm; Wt 131.1 kg
[2021-09-19 11:58] VITALS: BP 121/79
[2021-09-19] MEDS ORDERED: METFORMIN HCL500 MG PO (12:06)
[2021-09-19] MEDS ORDERED: METOPROLOL SUCC50 MG PO (12:06)
[2021-09-19] MEDS ORDERED: TAMSULOSIN HCL0.4 MG PO (12:07)
[2021-09-19] MEDS ORDERED: DEMADEX20 MG PO (12:07)
[2021-09-19 12:30] LABS: HEMATOCRIT 45.2 % (42.0-52.0); HEMOGLOBIN 13.3 gm/dL (14.0-18.0); MCH 27.9 pg (26.0-34.0); MCHC 29.4 g/dL (28.0-37.0); MCV 94.8 fL (80.0-100.0); PLATELET COUNT 279 thou/uL (150-400); RBC 4.77 mil/uL (4.50-6.00); RDW 25.8 % (10.5-14.5)
[2021-09-19 12:47] LABS: CALCIUM 8.9 mg/dL (8.5-10.1); CREATININE 1.4 mg/dL (0.7-1.3); POTASSIUM 4.4 mmol/L (3.5-5.1)
[2021-09-19 12:54] LABS: ALBUMIN 3.5 g/dL (3.4-5.0); TOTAL BILIRUBIN 1.1 mg/dL (0.2-1.0); TOTAL PROTEIN 6.6 g/dL (6.4-8.2)
--- NOTE | 2021-09-19 13:10 | EKG ---
[address] [facility] [address] ELECTROCARDIOGRAM REPORT Name: RACHID DIAMOND CITLALI [id number] Admission: 09/19/21 Attend Phys: Discharge: Date of : 59 Report #: [id number] [facility] ED Test Date: 2021-09-19 Test Time: 12:14:19 Pat Name: RACHID DIAMOND Department: Room: Gender: M Gear Cutting Machine Set Up Operator: JOSE ALBERTO : 1955 Requested By: Fe Lama Order Number: [id number] MD: Santana Ceja Measurements Intervals [place] Rate: 114 P: LA: QRS: -59 QRSD: 109 T: 74 QT: 321 QTc: 443 Interpretive Statements Atrial fibrillation Inferior infarct, old Probable anterior infarct, old Compared to ECG 08/24/2021 00:58:32 Left anterior fascicular block no longer present Early repolarization no longer present Myocardial infarct finding still present Electronically Signed On 09-19-2021 13:10:00 ANALYTICAL TECH by Santana Ceja [email or web address] <ELECTRONICALLY SIGNED> By: Santana Ceja MD, [facility] 09/19/21 1310 121 13 Santana Ceja MD, [facility] /EPI
[2021-09-19 14:51] LABS: ABSOLUTE NEUTROPHILS 5.2 thou/uL (1.4-8.2); NUCLEATED RBCS 3 /100WBC
[2021-09-19 14:52] LABS: MACROCYTES 1+; MICROCYTES 2+; POLYCHROMASIA 1+
[2021-09-19 14:53] LABS: TARGET CELLS 1+
[2021-09-19 14:54] LABS: TOXIC GRANULATION SLIGHT
[2021-09-19 16:45] VITALS: BP 139/74
--- NOTE | 2021-09-19 17:37 | NUR ---
PT TRANSFERRED FROM ER TO CCU. PT WAS SEEN FOR BLE SWELLING. HE WAS FOUND TO BE IN AFIB WITH RVR. CADIZEM WAS STRATED IN CCU CURRENTLY BEING TITRATED TO PROTOCOL.
[2021-09-19 18:57] VITALS: BP 103/65
[2021-09-19 20:41] VITALS: BP 118/75
[2021-09-20 03:20] LABS: HEMOGLOBIN 11.5 gm/dL (14.0-18.0)
[2021-09-20 03:22] LABS: MCH 27.8 pg (26.0-34.0); MCHC 29.6 g/dL (28.0-37.0); MCV 93.8 fL (80.0-100.0); PLATELET COUNT 240 thou/uL (150-400); RBC 4.15 mil/uL (4.50-6.00); RDW 26.2 % (10.5-14.5)
[2021-09-20 03:37] LABS: CALCIUM 8.7 mg/dL (8.5-10.1); CREATININE 1.3 mg/dL (0.7-1.3); POTASSIUM 4.2 mmol/L (3.5-5.1)
[2021-09-20 03:48] LABS: MAGNESIUM 1.8 mg/dL (1.8-2.4)
[2021-09-20 03:57] VITALS: BP 123/78
[2021-09-20 04:34] LABS: CHOLESTEROL 67 mg/dL (<200); HDL CHOLESTEROL 22 mg/dL (>40); LDL CHOLESTEROL 28 mg/dL (<100); TRIGLYCERIDE 87 mg/dL (<150); VLDL 17 mg/dL (<40)
[2021-09-20 04:42] LABS: ABSOLUTE NEUTROPHILS 4.4 thou/uL (1.4-8.2)
[2021-09-20 04:43] LABS: ANISOCYTOSIS 3+; LARGE PLATELETS FEW; OVALOCYTES 1+; PLATELET ESTIMATE NORMAL; POIKILOCYTOSIS 2+; SCHISTOCYTES 1+
[2021-09-20 05:06] LABS: SERUM ASSESSMENT Clear
[2021-09-20 08:00] VITALS: BP 109/61
--- NOTE | 2021-09-20 08:15 | NUR ---
ASSESSMENTS CHARTED, MEDS CHARTED GIVEN. PATIENT RESTING IN ROOM DURING SHIFT. PATIENT AMAZED HOW MUCH FLUID HE HAS TAKEN OFF ALREADY.
--- NOTE | 2021-09-20 08:53 | NUR ---
SEE OT VARIANCE
--- NOTE | 2021-09-20 10:15 | NUR ---
ORDERS FOR EVAL AND TREAT. OBSERVED Pt STAND AND AMBULATE AROUND IN ROOM WITHOUT DIFFICULTY. Pt STATES HE FEELS HE IS MOVING AT BASELINE AND DOES NOT NEED A FORMAL P.T. EVAL. Pt APPEARS SAFE FOR HOME FROM P.T. STANDPOINT WHENEVER MEDICALLY CLEAR
[2021-09-20 15:30] VITALS: BP 120/65
[2021-09-20 16:30] VITALS: BP 125/79
--- NOTE | 2021-09-20 19:33 | NUR ---
PATIENT IS RELIEVED BY DECREASE SWELLING IN HIS ABDOMEN AND LE. NICODERM PATCH APPLIED. PATIENT UP AD KATIE AND STEADY ON HIS FEET. IN ROOM FOR MAJORITY OF DAY. CARDIZEM DRIP, INCREASED AT 1400 D/T HR 150'S. HR QUICKLY RETURNED TO 110'S. WILL CONTINUE TO MONITOR.
[2021-09-20 20:15] VITALS: BP 123/62
[2021-09-21 03:06] LABS: GLYCOHEMOGLOBIN (HGB A1C) 6.3 % (4.8-5.6)
[2021-09-21 04:45] VITALS: BP 106/56; BP 119/83
--- NOTE | 2021-09-21 06:44 | NUR ---
PATIENT DID WELL DURING THIS SHIFT. PATIENT REMAINS IN AFIB BUT HIS RATE IS MAINTAINING BETWEEN 105-120. HE STATES THAT HE HAS BEEN URINATING BETTER SINCE RECEIVING LASIX IV. PATIENT STATES THAT HE WOULD LIKE TO GO HOME IN THE AM. HIS VITALS ARE STABLE. HE IS COMPLIANT WITH MEDICATION AND TREATMENT. DENIES ANY PAIN. LUNG SOUNDS ARE COARSE TO DIMINISHED. ON 4LNC. NO DISTRESS NOTED. WILL CONTINUE TO MONITOR FOR CHANGES IN STATUS.
[2021-09-21 07:45] VITALS: BP 102/55
[2021-09-21 11:10] VITALS: BP 102/55
[2021-09-21 12:00] VITALS: BP 107/48
[2021-09-21 16:00] VITALS: BP 103/76
[2021-09-21 20:43] VITALS: BP 131/62
--- NOTE | 2021-09-21 22:21 | NUR ---
PATIENT AA0X4. FOLLOWS ALL COMMANDS AND PROMPTS. HE REMAINS IN AFIB WITH A CONTROLLED RATE 80-90 AT THIS TIME. HE IS NO LONGER ON THE CARDIZEM DRIP. SPOKE WITH PATIENT ABOUT HIS STRESS TEST IN THE AM. PATIENT STATES THAT HE HAS HAD MULTIPLE STRESS TESTS IN THE PAST. HE REMAINS ON 5L NC. DENIES ANY PAIN AT THIS TIME. STATES THAT HE WANTS TO GET A GOOD NIGHTS SLEEP. NO S/S OF DISTRESS NOTED. WILL CONTINUE TO MONITOR.
[2021-09-22 04:07] LABS: ABSOLUTE NEUTROPHILS 5.6 thou/uL (1.4-8.2); BASOPHILS 0.8 % (0.0-2.0); CALCIUM 8.8 mg/dL (8.5-10.1); CREATININE 1.2 mg/dL (0.7-1.3); EOSINOPHILS 1.4 % (0.0-3.0); HEMATOCRIT 41.7 % (42.0-52.0); HEMOGLOBIN 12.1 gm/dL (14.0-18.0); LYMPHOCYTES 18.4 % (24.0-44.0); MAGNESIUM 1.9 mg/dL (1.8-2.4); MCH 27.4 pg (26.0-34.0); MCV 94.6 fL (80.0-100.0); MONOCYTES 7.4 % (1.0-8.0); PLATELET COUNT 256 thou/uL (150-400); POTASSIUM 4.4 mmol/L (3.5-5.1); RBC 4.41 mil/uL (4.50-6.00); RDW 25.6 % (10.5-14.5); WBC 7.8 thou/uL (4.0-11.0)
[2021-09-22 06:18] VITALS: BP 132/65
--- NOTE | 2021-09-22 06:41 | NUR ---
DURING THIS SHIFT PATIENT HAS COMPLAINED ABOUT BEING NPO. PATIENT THREATENED THAT IF HE DIDNT GET SOMETHING TO DRINK HE WAS GOING TO LEAVE AMA. HE ALSO TOLD THE BHT THAT HE WAS NOT GOING TO PUT HIS OXYGEN BACK ON UNTIL HE RECEIVED SOMETHING TO DRINK. PATIENT WAS GIVEN A SMALL CUP OF WATER TO GET HIM TO COMPLY. HE NOW STATES THAT IF HIS STRESS TEST IS NOT DONE EARLY THAT HE WILL LEAVE WELL.
[2021-09-22 09:00] VITALS: BP 134/66
[2021-09-22] MEDS ORDERED: XARELTO20 MG PO (09:31)
[2021-09-22] MEDS ORDERED: METOPROLOL SUCC50 MG PO (09:31)
[2021-09-22] MEDS ORDERED: TORSEMIDE20 MG PO (09:31)
[2021-09-22] MEDS ORDERED: CARDIZEM CD 18180 M3 PO (09:31)
[2021-09-22 12:14] VITALS: BP 118/76
[2021-09-22 12:17] VITALS: BP 118/76
[2021-09-22 12:48] VITALS: BP 118/76
--- NOTE | 2021-09-23 07:29 | 2DMMODE ---
[facility] [address] [place] [address] 2 D/M-MODE ECHOCARDIOGRAM Name: RACHID DIAMOND Room #: 215-P [facility] IN M.R.#: [id number] Admission: 09/19/21 Attend Phys: Denia Herrera MD Discharge: 09/22/21 Date of : 59 Report #: [id number] THIS REPORT FOR: cc: Randa Velazquez Shanna R. DO Santiago, Patrick MD [facility] ~ APPROVED REPORT Study performed: 09/22/2021 09:48:42 EXAM: Comprehensive 2D, Doppler, and color-flow Echocardiogram Patient Location: Bedside Room #: 215 Status: on-call BSA: 2.43 HR: 98 bpm BP: 134/66 mmHg Rhythm: Atrial Fibrillation Other Information Study Quality: Adequate Indications Dyspnea Chest Pain COPD, Aflutter. 2D Dimensions RVDd: 54.34 mm IVSd: 11.65 (7-11mm) LVOT Diam: 24.32 (18-24mm) LVDd: 62.64 mm PWd: 10.53 (7-11mm) LVDs: 48.74 (25-40mm) Left Atrium: 47.95 (27-40mm) Volumes Left Atrial Volume (Systole) Single Plane 4CH: 76.59 mL Single Plane 2CH: 88.38 mL LA ESV Index: 36.00 mL/m2 Aortic Valve AoV Peak Miguelangel.: 1.48 m/s AO Peak Gr.: 8.77 mmHg LVOT Max P.22 mmHg LVOT Max V: 1.03 m/s [facility] [address] [place] [address] 2 D/M-MODE ECHOCARDIOGRAM Name: DARARACHID LEE Room #: 215-P [facility] IN [facility].#: [id number] Admission: 09/19/21 Attend Phys: Robinson Jones Discharge: 09/22/21 Date of : 59 Report #: [id number] RHONDA Vmax: 3.22 cm2 Mitral Valve MV Decel. Time: 184.98 ms MV E Max Miguelangel.: 1.42 m/s Pulmonary Valve PV Peak Miguelangel.: 1.19 m/s PV Peak Gr.: 5.63 mmHg Tricuspid Valve TR Peak Miguelangel.: 3.13 m/s RAP Estimate: 15.00 mmHg TR Peak Gr.: 39.18 mmHg PA Pressure: 54.00 mmHg Left Ventricle Left ventricle is moderately dilated. There is normal left ventricular wall thickness. Left ventricular systolic function is mildly decreased. LVEF is 40%. This study is not technically sufficient to allow evaluation of the LV diastolic function. Right Ventricle Right ventricle is dilated. The right ventricular systolic function is normal. Atria Left atrium is mildly dilated. Right atrium is moderately dilated. Aortic Valve The aortic valve is normal in structure. Trace aortic regurgitation. There is no aortic valvular stenosis. Mitral Valve The mitral valve is normal in structure. There is no mitral valve regurgitation noted. No evidence of mitral valve stenosis. Tricuspid Valve The tricuspid valve is normal in structure. Mild tricuspid regurgitation. Estimated PAP is 50-55mmHg. Pulmonic Valve The pulmonary valve is normal in structure. Mild pulmonic regurgitation. Great Vessels Aortic root is dilated (4.2cm). IVC is dilated and collapses <50% [facility] [address] [place] [address] 2 D/M-MODE ECHOCARDIOGRAM Name: DARARACHID COLUMBIA Room #: 215-[facility] IN M.R.#: [id number] Admission: 09/19/21 Attend Phys: Robinson Jones Discharge: 09/22/21 Date of : 59 Report #: [id number] with inspiration. Pericardium There is no pericardial effusion. <Conclusion> Left ventricle mild to moderately dilated Normal wall thickness Mild global hypokinesis ejection fraction 40% Right ventricle mildly dilated/contractile Mild biatrial enlargement Trace aortic valve insufficiency Normal mitral valve structure and function Mild tricuspid valve insufficiency Pulmonary systolic pressure estimated 5055 mmHg Aortic root mildly dilated 4.2 cm No pericardial effusion <ELECTRONICALLY SIGNED> By: Santana Ceja MD, [facility] 09/23/2129 8 0729 Santana Ceja MD, FACC /INF
== END 2021-09-22 14:38 | disposition home or self-care (01) | DRG 291 ==
LOC: ER 11:41 → EROBS 15:42 → 2N 15:42
PROVIDERS: Emergency Medicine; Nurse Practitioner; ADMIT Hospitalist; ATTEND Hospitalist
DX: I13.0 Hypertensive heart and chronic kidney disease with heart failure and stage 1 through stage 4 chronic kidney disease, or unspecified chronic kidney disease (principal); J96.20 Acute and chronic respiratory failure, unspecified whether with hypoxia or hypercapnia; I50.43 Acute on chronic combined systolic (congestive) and diastolic (congestive) heart failure; N17.9 Acute kidney failure, unspecified; J44.1 Chronic obstructive pulmonary disease with (acute) exacerbation; Z68.41 Body mass index [BMI] 40.0-44.9, adult; I48.91 Unspecified atrial fibrillation; Z20.822 Contact with and (suspected) exposure to COVID-19; F17.210 Nicotine dependence, cigarettes, uncomplicated; E11.42 Type 2 diabetes mellitus with diabetic polyneuropathy; N40.0 Benign prostatic hyperplasia without lower urinary tract symptoms; E66.9 Obesity, unspecified; D49.9 Neoplasm of unspecified behavior of unspecified site; E11.22 Type 2 diabetes mellitus with diabetic chronic kidney disease; R07.89 Other chest pain; N18.9 Chronic kidney disease, unspecified; Z79.82 Long term (current) use of aspirin; Z79.01 Long term (current) use of anticoagulants; Z90.5 Acquired absence of kidney; Z90.49 Acquired absence of other specified parts of digestive tract; Z88.0 Allergy status to penicillin; Z88.8 Allergy status to other drugs, medicaments and biological substances; Z79.899 Other long term (current) drug therapy
CPT/HCPCS: 10194

== ENCOUNTER 2021-10-13 12:48 | Inpatient (IN) | payer OTHER ==
[~2021-10-13] VITALS: Ht 180.3 cm; Wt 128.6 kg
[~2021-10-13 12:48] MED LIST changes: +CARDIZEM CD 18180 M3 PO; +DEMADEX20 MG PO; +METOPROLOL SUCC50 MG PO; +TAMSULOSIN HCL0.4 MG PO; +TORSEMIDE20 MG PO; +XARELTO20 MG PO
[2021-10-13 12:56] VITALS: BP 125/73
[2021-10-13 13:38] LABS: ABSOLUTE NEUTROPHILS 5.2 thou/uL (1.4-8.2); HEMOGLOBIN 13.2 gm/dL (14.0-18.0)
[2021-10-13 13:40] LABS: BASOPHILS 3.1 % (0.0-2.0); EOSINOPHILS 1.1 % (0.0-3.0); HEMATOCRIT 46.9 % (42.0-52.0); LYMPHOCYTES 15.3 % (24.0-44.0); MCH 25.2 pg (26.0-34.0); MCHC 28.1 g/dL (28.0-37.0); MCV 89.6 fL (80.0-100.0); MONOCYTES 5.9 % (1.0-8.0); PLATELET COUNT 217 thou/uL (150-400); POLYS 74.6 % (36.0-66.0); RBC 5.23 mil/uL (4.50-6.00); RDW 25.5 % (10.5-14.5); WBC 8.1 thou/uL (4.0-11.0)
[2021-10-13 13:48] LABS: CALCIUM 8.7 mg/dL (8.5-10.1); CREATININE 1.2 mg/dL (0.7-1.3); POTASSIUM 4.8 mmol/L (3.5-5.1)
[2021-10-13 13:58] LABS: ALBUMIN 3.2 g/dL (3.4-5.0); MAGNESIUM 2.5 mg/dL (1.8-2.4); TOTAL BILIRUBIN 1.5 mg/dL (0.2-1.0); TOTAL PROTEIN 6.3 g/dL (6.4-8.2)
[2021-10-13 15:02] VITALS: BP 133/84
[2021-10-13 15:13] LABS: URINE BILIRUBIN NEGATIVE (Negative); URINE BLOOD NEGATIVE (Negative); URINE CLARITY CLEAR; URINE COLOR YELLOW; URINE GLUCOSE-RANDOM* NEGATIVE (Negative); URINE KETONES NEGATIVE (Negative); URINE LEUKOCYTES-REFLEX NEGATIVE (Negative); URINE NITRITE-REFLEX NEGATIVE (Negative); URINE PROTEIN (DIPSTICK) NEGATIVE (Negative); URINE UROBILINOGEN 0.2 E.U./dl (0.2-1.0)
[2021-10-13 15:29] VITALS: BP 133/84
[2021-10-13 15:36] LABS: ANISOCYTOSIS 3+; MACROCYTES 2+; MICROCYTES 1+; POLYCHROMASIA 2+
[2021-10-13 15:53] VITALS: BP 124/72
--- NOTE | 2021-10-13 18:06 | NUR ---
assumed care of pt on arrival to unit at approx 1600. pt alert and oriented, mild resp distress, requiring 6L NC to maintain oxygenation. coarse lung sounds. 3+ edema to LLE. +2 RLE. using urinal. home meds reconciled. afib on telemetry. iv abx infusing per order. wcm.
[2021-10-13 19:44] VITALS: BP 120/70
[2021-10-14 03:46] VITALS: BP 126/72
[2021-10-14 05:04] LABS: CALCIUM 8.5 mg/dL (8.5-10.1); CREATININE 1.2 mg/dL (0.7-1.3)
--- NOTE | 2021-10-14 05:57 | NUR ---
Patient making slow progress towards outcome goals. Vital signs stable. Rhythm chronic Afib, rate controlled. Orders to cahbge status to Med/surg. Telemetry kept on, activily diuresing with history of Afibrillation. Good pain control with Hydrocodone and Gabapentin. Diuresing with Lasix.
[2021-10-14 07:18] VITALS: BP 124/87
--- NOTE | 2021-10-14 07:52 | EKG ---
[address] [address] ELECTROCARDIOGRAM REPORT Name: RACHID DIAMOND CITLALI Room #: 363-P ADM IN M.R.#: [id number] Admission: 10/13/21 Attend Phys: Erik Oliva MD Discharge: Date of : 59 Report #: [id number] [facility] ED Test Date: 2021-10-13 Test Time: 13:14:24 Pat Name: RACHID DIAMOND Department: Room: 363 P Gender: M Slitter Operator: JESSICA HERNÁNDEZ : 1955 Requested By: Sherley Callahan Order Number: [id number] MD: Santana Ceja Measurements Intervals [place] Rate: 122 P: [place]: QRS: -63 QRSD: 117 T: 62 QT: 329 QTc: 469 Interpretive Statements Atrial fibrillation Left anterior fascicular block Baseline wander in lead(s) V1,V2,V4,V6 Compared to ECG 09/19/2021 12:14:19 Left anterior fascicular block now present Electronically Signed On 10-14-2021 7:51:53 CURATORIAL ASSISTANT by Santana Ceja [email or web address] <ELECTRONICALLY SIGNED> By: Santana Ceja MD, FACC 10/14/21 0751 1314 1314 Santana Ceja MD, [facility] /EPI
[2021-10-14 15:16] VITALS: BP 103/56
--- NOTE | 2021-10-14 15:37 | NUR ---
INITIAL ASSESSMENT: SW reviewed chart and spoke with nursing and attending physician. Pt was admitted from home due to CHF exacerbation/COVID. Pt placed in Enhanced Isolation. Pt with hx of COPD/CHF/DM. Pt has received the [employer] COVID vaccination. PT/OT ordered. SW spoke with pt via phone. Introduced role of SW. Pt is alert/orientated x 4. Pt reports he lives at home wtih his . Prior to admission, pt was independent with ADLs. Pt has a cane to use if needed. There are 3 steps into the house. No steps inside. No hx of HH services or post-acute placmement. Pt has home O2 in place through [facility] and is normally on 3L. Pt's PCP is Dr. Randa Velazquez. Pt is agreeable with HH referral if recommended. Plan is for pt to discharge home when medically stable. SW is following to assist as needed with discharge planning.
--- NOTE | 2021-10-14 19:20 | NUR ---
RN ASSUMED PT'S CARE AT 0700-1900PM, PT IS A7OX4, PT IS ON O2 6L/MIN/NC, PT'S O2SAT STAY AT 92-96%, PT HAS SOB WITH ACTIVITIES, PT 'S VS ARE STABLE AT DAY SHIFT, PT IS CONTINUING IV ABX AND TREAT COVID MEDICATIONS, PT'S LOW BACK PAIN CAN CONTROL .
[2021-10-14 19:24] VITALS: BP 116/71
--- NOTE | 2021-10-14 23:37 | NUR ---
PT RESTING IN BED, WATCHING TV. LUNGS DIMINISHED, CRACKLES, O2 PER NC. BLE EDEMA. PT INDEP AND CALLS FOR ASSIST NEEDED. PT DECLINED HS SNACK.
[2021-10-15 04:08] VITALS: BP 100/43
[2021-10-15 08:10] VITALS: BP 120/70
--- NOTE | 2021-10-15 15:00 | NUR ---
SW reviewed chart and spoke with nursing and attending physician. Pt remains in Enhanced Isolation due to COVID. Pt is afebrile and on 6L of O2. PT is on IV abx and IV lasix. Therapy has been ordered. Plan is for pt to discharge home when medically stable. CHENG is following to assist as needed with discharge planning.
[2021-10-15 16:14] VITALS: BP 127/70
--- NOTE | 2021-10-15 18:24 | NUR ---
RN ASSUMED PT 'S CARE AT 0700-1800PM, PT IS A&OX4, PT HAS IV ABX AND TREAT COVID MEDICATIONS, PT IS ON O2 6L/MIN/NC, PT'S O2SAT STAY AT 92-94%, BUT PT STILL HAS SOB WITH EXERTION, PT REQUESTS TO GO HOME WIHTOUT DC ORDER, RN HAS CALLED DR TO REPORT PT WANTS TO GO HOME, PT'S SON CAME TO [employer] PT TO HOME AT 1800PM, PT HAS SIGNED AMA PAPER . RN REMINDS PT AND FAMILY , PT NEEDS TO KEEP COVID ISOLATION 17 MORE DAYS .
== END 2021-10-15 18:31 | disposition left against medical advice (07) | DRG 177 ==
LOC: ER 12:48 → EROBS 14:47 → 3W 14:47
PROVIDERS: Physician Assistant; ADMIT Hospitalist; ATTEND Hospitalist
DX: U07.1 COVID-19 (principal); J96.21 Acute and chronic respiratory failure with hypoxia; J12.82 Pneumonia due to coronavirus disease 2019; I50.43 Acute on chronic combined systolic (congestive) and diastolic (congestive) heart failure; I48.20 Chronic atrial fibrillation, unspecified; I48.92 Unspecified atrial flutter; J44.0 Chronic obstructive pulmonary disease with (acute) lower respiratory infection; I13.0 Hypertensive heart and chronic kidney disease with heart failure and stage 1 through stage 4 chronic kidney disease, or unspecified chronic kidney disease; F17.210 Nicotine dependence, cigarettes, uncomplicated; F12.90 Cannabis use, unspecified, uncomplicated; E78.5 Hyperlipidemia, unspecified; N18.9 Chronic kidney disease, unspecified; E11.22 Type 2 diabetes mellitus with diabetic chronic kidney disease; Z53.29 Procedure and treatment not carried out because of patient's decision for other reasons; Z90.5 Acquired absence of kidney; Z79.01 Long term (current) use of anticoagulants; Z90.49 Acquired absence of other specified parts of digestive tract; Z88.0 Allergy status to penicillin; Z88.8 Allergy status to other drugs, medicaments and biological substances
CPT/HCPCS: 10779; 10879